=== PATIENT | female | born 1935 | race Caucasian/White ===

== ENCOUNTER → 2016-08-01 | Day surgery (SDC) | payer OTHER, MEDICARE ==
[~2016-08-01] VITALS: Ht 175.3 cm; Wt 101.6 kg
[~2016-08-01] MED LIST: ALBUTEROL 3 ML3 ML INH; ALBUTEROL2.5 MG/0.5 INH/SOL; AMOX-CLAV 875-1 EACH PO; ATIVAN0.5 M1 PO; CALCIUM + VITA1 EAC1 PO; FENTANYL TR50 MCG/HR TOP; FENTANYL1 EAC4 TOP; FOLIC ACID1 M1 PO; GABAPENTIN300 M2 PO; HUMALOG100 UNIT/2 SC; LANTUS SOL100 UNIT/1 SC; LEVAQUIN750 MG PO; LISINOPRIL2.5 M1 PO; LOVASTATIN40 M1 PO; METHOTREXATE2.5 M2 PO; NYSTATIN60 GM TOP; OTEZLA30 M2 PO; OXYBUTYNIN CHLOR5 M2 PO; PAROXETINE HCL40 M1 PO; PREDNISONE 20MG20 MG PO; PREDNISONE10 M2 PO; PREDNISONE10 MG PO; PROAIR HFA0.09 MG/Ac PO; SYMBICORT 80-10.2 GM INH; SYNTHROID75 MCG PO; TOPIRAMATE50 MG PO
--- NOTE | 2016-08-01 09:38 | Operative Report ---
Operative/Inv Procedure Report Surgery Date: 08/01/16 Name of Procedure: Cataract extraction lens in plantation left eye Pre-Operative Diagnosis: Age-related cataract left eye 20/40 vision 20/100 glare vision Post-Operative Diagnosis: Same Estimated Blood Loss: none Surgeon/Assistant Front Office Manager: GRAHAM BARTH,DALJIT Neal Anesthesia: local monitored anesthesi Complications: None Operative/Procedure Note Note: The patient was brought to the operating room standard monitoring equipment was attached the patient was prepped and draped in the usual fashion for intraocular surgery. A lid speculum was placed to retract the lids. The case was begun by making a temporal incision with a 2.4 mm keratome. The eye was stabilized with a Kolb ring during this incision. 1 mL of non-preserved lidocaine was introduced into the anterior chamber to provide anesthesia. The anterior chamber was then filled and deepened with viscoelastic. A curvilinear capsulorrhexis was achieved using a 30-gauge needle and is a cystotome and capsulorrhexis was finished using a Utrata forceps. A second or paracentesis incision was made temporally with a 1 mm MVR blade. The lens was then hydrodissected with balanced salt solution and found to be rotatable. The lens was emulsified using phacoemulsification and a modified four-quadrant cracking technique. The residual cortical material was removed using automated irrigation and aspiration and as much of the anterior capsular rim was cleaned as well as possible. The posterior capsule was cleaned first with the automated machine on a low setting and then manually with a Iban squeegee. The capsular bag was deepened with viscoelastic. The lens a Akreos AO 60 19.5 Diopter placed into the bag under direct visualization and rotated so that the haptics were at 12 and 6:00. Viscoelastic was then removed from the eye by flushing it out and then by automated irrigation and aspiration. The eye was pressurized to a normal tone. 1/10 of a cc of vancomycin solution was introduced into the anterior chamber to provide antibiotic prophylaxis. The wounds were sealed by hydrating the stroma adjacent to them and the eye was left at a proper tone after the wounds were checked and found not to be leaking. The lid speculum was removed from the orbit. Antibiotic and steroid drops were placed on the eye and then the eye was shielded. Monitoring equipment was removed from the patient and the patient was removed from the operative suite to the holding area. The patient tolerated the procedure well and will be seen in the office tomorrow.
== END ==
LOC: STS 01:08
DX: H25.9 Unspecified age-related cataract (principal); E11.9 Type 2 diabetes mellitus without complications; Z79.4 Long term (current) use of insulin; I10 Essential (primary) hypertension; E78.00 Pure hypercholesterolemia, unspecified
CPT/HCPCS: J2250; V2632

== ENCOUNTER 2016-10-30 13:00 | Inpatient (IN) | payer OTHER, MEDICARE ==
[~2016-10-30] VITALS: Ht 175.3 cm; Wt 103.9 kg
[~2016-10-30 13:00] MED LIST changes: -AMOX-CLAV 875-1 EACH PO; -PREDNISONE10 M2 PO
--- NOTE | 2016-10-30 13:01 | NUR ---
PT 02 SAT AT [facility] 91%
--- NOTE | 2016-10-30 13:10 | NUR ---
PT AMBULATORY TO ROOM 17, TRIAGE MST ASSISTING PT TO CHANGE INTO GOWN AND DOING EKG AT THIS TIME
--- NOTE | 2016-10-30 13:10 | NUR ---
PT C/O INCREASED SOB OVER THE PAST FEW DAYS. PT STATES SHE DOES HAVE HX OF COPD PT SPOKE TO DR. CONKLIN AND THEY COULD NOT TAKE HER TODAY SO SENT HER TO ED. PT DENIES SWELLING IN HER LEGS. PT STATES SHE HAS BEEN COUGHING UP THICK GREEN MUCOUS SINCE YESTERDAY BUT DENIES FEVERS. TRIAGED BY NIYA GALEANA
--- NOTE | 2016-10-30 13:15 | ED DYSPNEA/ASTHMA COMPLAINT ---
History of Present Illness General Chief Complaint: Dyspnea (COPD, CHF, Other) Stated Complaint: SOB X 2 DAYS Source: patient, family, old records Exam Limitations: no limitations Vital Signs & Intake/Output Vital Signs & Intake/Output Vital Signs Date Time Temp Pulse Resp B/P B/P Pulse O2 O2 Flow FiO2 Mean Ox Delivery Rate 10/30 1526 97.5 88 22 138/62 94 Nasal 4.0L Cannula 10/30 1442 93 Nasal 2.0L Cannula 10/30 1400 95 Nasal 2.0L Cannula 10/30 1319 95 26 92 Nasal 2.0L Cannula 10/30 1319 28 89 Room Air 10/30 1304 97.7 96 18 128/77 91 Room Air Allergies Coded Allergies: codeine (HIVES 01/26/16) Triage Note: PT C/O INCREASED SOB OVER THE PAST FEW DAYS. PT STATES SHE DOES HAVE HX OF COPD PT SPOKE TO DR. CONKLIN AND THEY COULD NOT TAKE HER TODAY SO SENT HER TO ED. PT DENIES SWELLING IN HER LEGS. PT STATES SHE HAS BEEN COUGHING UP THICK GREEN MUCOUS SINCE YESTERDAY BUT DENIES FEVERS. Triage Nurses Notes Reviewed? yes HPI: PATIENT IS A 81-YEAR-OLD FEMALE PRESENTS COMPLAINING OF DYSPNEA FOR THE PAST 2 DAYS. cOUGH WITH GREEN SPUTUM PRODUCTION. Associated wheezing. Patient has been using her Pro Air and Symbicort with mild improvement. Patient reports her baseline oxygen saturation is approximately 97% on room air. Patient called her fishing tackle repairer Dr. Mcbride and was referred to the emergency department for further evaluation. Symptoms are currently moderate while sitting on the stretcher, worsen with exertion. Right-sided headache onset today along with right posterior neck pain. Patient denies fevers, chills, chest pain, nausea, vomiting (HEATHER GRAY,ELISEO) Reconcile Medications Apremilast (Otezla) 30 MG TABLET 1 TAB PO BID PSORIATIC ARTHRITIS (Reported) Budesonide/Formoterol Fumarate (Symbicort 80-4.5 Mcg Inhaler) 80 MCG-4.5 MCG/ ACTUATION HFA.AER.AD 2 PUF INH BID COPD (Reported) Calcium Carbonate/Vitamin D3 (Calcium + Vitamin D Tablet) 1 EACH TABLET 1 TAB PO BID SUPPLEMENT (Reported) Fentanyl 75 MCG/HOUR PATCH.TD72 1 PAT TOP Q48 PAIN (Reported) Folic Acid 1 MG TABLET 1 TAB PO BID VITAMIN SUPPORT (Reported) Gabapentin 300 MG CAPSULE 1 CAP PO DAILY NEUROPATHY (Reported) Gabapentin 300 MG CAPSULE 2 CAP PO QPM NEUROPATHY (Reported) Insulin Glargine,Hum.rec.anlog (Lantus Solostar) 100 UNIT/ML (3 ML) INSULN.PEN 35 UNIT SC BID DIABETES (Reported) Insulin Lispro (Humalog) (Unknown Strength) VIAL (Unknown Dose) SC SEE SLIDING SCALE DIABETES (Reported) Lisinopril 2.5 MG TABLET 1 TAB PO DAILY HTN (Reported) Lorazepam (Ativan) 0.5 MG TABLET 1 TAB PO BIDP PRN ANXIETY Lovastatin 40 MG TABLET 2 TAB PO QPM CHOLESTEROL (Reported) with food Methotrexate 2.5 MG TABLET 7 TAB PO QSUN PSORIATIC ARTHRITIS (Reported) Oxybutynin Chloride 5 MG TABLET 1 TAB PO BID BLADDER (Reported) Paroxetine HCl 40 MG TABLET 1.5 TAB PO DAILY DEPRESSION (Reported) (ALIYA DRAKE DO) Past History Travel History Traveled to [place] past 21 day No Medical History Any Pertinent Medical History? see below for history Neurological: migraine EENT: NONE Cardiovascular: hypertension, hyperlipidemia Respiratory: asthma, COPD Gastrointestinal: GERD Hepatic: NONE Renal: NONE Musculoskeletal: chronic back pain Psychiatric: anxiety, depression Endocrine: hypothyroidism Blood Disorders: anemia Cancer(s): NONE Other Medical Hx: Rheum: psoriatic arthritis History of MRSA: No History of VRE: No History of CDIFF: No Surgical History Surgical History: non-contributory Psychosocial History Who do you live with Daughter Services at Home None What is your primary language Guinean Tobacco Use: Never used ETOH Use: denies use Illicit Drug Use: denies illicit drug use Family History Hx Contributory? No (ELISEO RAMOS) Review of Systems Review of Systems Constitutional: Denies: chills, fever. EENTM: Reports: no symptoms. Respiratory: Reports: see HPI. Cardiovascular: Denies: chest pain. GI: Denies: abdominal pain, nausea, vomiting. Genitourinary: Reports: no symptoms. Musculoskeletal: Reports: neck pain (right posterior). Skin: Reports: no symptoms. Neurological/Psychological: Reports: headache. Hematologic/Endocrine: Reports: other (diabetes). Immunologic/Allergic: Reports: no symptoms. (ELISEO RAMOS) Physical Exam Physical Exam General Appearance: well developed/nourished, alert, awake Head: atraumatic, normal appearance Eyes: Bilateral: normal appearance, PERRL, EOMI. Ears, Nose, Throat: normal pharynx, normal ENT inspection, hearing grossly normal Neck: normal inspection, supple, full range of motion Respiratory: diffuse moderate expiratory wheezing, no accessory muscle use Cardiovascular: regular rate/rhythm (no appreciable murmur) Gastrointestinal: soft, non-tender Extremities: normal inspection, normal capillary refill, normal range of motion, trace bilateral lower extremity edema Neurologic/Psych: no motor/sensory deficits, awake, alert, oriented x 3, normal gait, normal mood/affect Skin: intact, normal color, warm/dry Lymphatic: no anterior cervical rudy Core Measures ACS in differential dx? No Severe Sepsis Present: No Septic Shock Present: No (HEATHER GRAY,ELISEO) Progress Differential Diagnosis: asthma, bronchitis, CHF, COPD, pulmonary embolism, pneumonia, unstable angina Plan of Care: Orders Procedure Date/time Status Consistent Carbohydrate 1 10/30 D Active STREP PNEUMO URINARY ANTIGEN 10/30 1557 Active LEGIONELLA URINARY ANTIGEN 10/30 1557 Active Pathway - chart 10/30 1529 Active Code Status 10/30 1529 Active Admit to inpatient 10/30 1528 Active Vital Signs 10/30 1528 Active Code Status 10/30 1528 Complete Patient Data 10/30 1521 Active AEROSOL (GEN) 10/30 1401 Complete THYROID STIMULATING HORMONE 10/30 1343 Active FREE T4 10/30 1343 Active FingerStick- Glucose 10/30 1331 Active BLOOD CULTURE 10/30 1319 Active LACTIC ACID 10/30 1319 Active COMPREHENSIVE METABOLIC PANEL 10/30 1319 Active CBC WITHOUT DIFFERENTIAL 10/30 1319 Complete EKG 10/30 1301 Active House Staff 10/30 UNK Active Lab Add-on Test 10/30 UNK Active VTE Mechanical Prophylaxis 10/30 UNK Active Vital Signs 10/[address] CHEST WO IV CONTRAST 10/30 UNK Active Current Medications Sig/Chirag Start time Last Medication Dose Stop Time Status Admin Enoxaparin Sodium 40 MG DAILY 10/31 1000 AC (Lovenox) Gabapentin 300 MG DAILY 10/31 1000 UNVr (Neurontin) Lisinopril 2.5 MG DAILY 10/31 1000 UNVr (Prinivil) Paroxetine HCl 50 MG DAILY 10/31 1000 UNVr (Paxil) Budesonide/ 2 PUF BID 10/30 2200 UNVr Formoterol Fumarate (SYMBICORT) Gabapentin 600 MG QPM 10/30 2199 UNVr (Neurontin) Insulin Detemir 30 UNITS BID 10/30 220 AC (Levemir) Atorvastatin Calcium 10 MG 1700 10/30 170 UNVr (Lipitor) Insulin Aspart 0 TIDAC 10/30 170 AC (NovoLOG) Non-Formulary 0 SEE ADMIN CRITERIA 10/30 1600 UNVr Medication (NON FORMULARY) Acetaminophen 650 MG Q6P PRN 10/30 1530 AC (Tylenol) Acetaminophen/ 1 TAB Q6P PRN 10/30 1530 AC Hydrocodone Bitart (Vicodin) Azithromycin 500 MG ONCE ONE 10/30 153 AC 10/30 (Zithromax) 10/30 1629 1549 Sodium Chloride 250 ML (Normal Saline 0.9%) Laboratory Tests 10/30/16 1425: CBC w Diff MAN DIFF ORDERED, RBC 4.10 L, MCV 97.6, MCH 33.1 H, RDW 15.7 H, MPV 7.9, Gran % 72.8, Lymphocytes % 17.0 L, Monocytes % 9.3, Eosinophils % 0.3, Basophils % 0.6, Absolute Granulocytes 12.0 H, Segmented Neutrophils 68, Absolute Lymphocytes 2.8, Lymphocytes 23, Monocytes 8, Absolute Monocytes 1.5 H , Absolute Eosinophils 0, Basophils 1, Absolute Basophils 0.1, Platelet Estimate ADEQUATE, Normocytic RBCs VERIFIED, Normochromic RBCs VERIFIED, Poikilocytosis 1 +, Stomatocytes 1+, PUBS MCHC 33.9 10/30/16 1343: Anion Gap 11, Estimated GFR > 60, BUN/Creatinine Ratio 24.0, Glucose 228 H, Lactic Acid 1.5, Calcium 9.1, Total Bilirubin 1.3, AST 31, ALT 41, Alkaline Phosphatase 87, Total Protein 6.7, Albumin 3.7, Globulin 3.0, Albumin/Globulin Ratio 1.2, TSH Pending, Free T4 Pending Microbiology 10/30 155 URINE ROUT: Legionella Antigen - COLB 10/30 155 URINE ROUT: Streptococcus pneumoniae Antigen (M - COLB 10/30 1425 BLOOD: Blood Culture - RECD 10/30 1343 BLOOD: Blood Culture - RECD Discussed with and seen by Dr. Drake. 1420: Patient reports she feels improved after duoneb treatment. Improved air movement on re-exam. Continues with moderate wheezing. Oxygen saturation 92% on 2 liters NC. 10/30/2016 3:20:54 PM: Patient reevaluated. Results of labs and chest x-ray discussed with the patient and her family. Patient's oxygen saturation dropped to 88% while on 2 L nasal cannula. Discussed with Dr. Schultz for admission. IV antibiotics ordered. (ELISEO RAMOS) Diagnostic Imaging: Viewed by Me: Radiology Read. Discussed w/RAD: Radiology Read. Radiology Impression: PATIENT: CARYN MASON PRESENT AGE: 81 PATIENT ACCOUNT NO: [id number] : 37 LOCATION: [facility] ORDERING PHYSICIAN: ELISEO GRAY SERVICE DATE: 10/30/16 EXAM TYPE: RAD - XRY-CHEST XRAY, PA AND LATERAL EXAMINATION: XR CHEST CLINICAL INFORMATION: Cough and sputum production. COMPARISON: CT chest 05/15/2014. Chest x-ray 12/30/2013. TECHNIQUE: PA and lateral views of the chest were obtained. FINDINGS: The lungs are well-expanded and clear without focal airspace consolidation. No pleural effusions or pneumothoraces are identified. Cardiomediastinal contours are within normal limits. Soft tissues are unremarkable. No acute osseous abnormality is identified. The visualized bones appear demineralized. There is no visible acute osseous abnormality. IMPRESSION: No acute pulmonary process. DICTATED BY: PARAG MACKEY MD DATE/TIME DICTATED: 10/30/161407 RIM BUSTER:JORDAN DATE/TIME TRANSCRIBED:10/30/161407 CONFIDENTIAL, DO NOT COPY WITHOUT APPROPRIATE AUTHORIZATION. <Electronically signed in Other Vendor System> SIGNED BY: PARAG MACKEY MD 10/30/16 1418 Initial ED EKG: normal p-waves, normal sinus rhythm, incomplete LBBB, LVH, no acute st/t wave changes from previous ekg Prior EKG: unchanged (ELISEO RAMOS) Departure Departure Time of Disposition: 1517 Disposition: STILL A PATIENT Condition: Stable Clinical Impression Primary Impression: COPD exacerbation Secondary Impressions: Hyperglycemia, Leukocytosis Referrals: MALISSA MELENDREZ MD (PCP/Family) Departure Forms: Customer Survey General Discharge Information Admission Note Spoke With: NORMA SCHULTZ MD Documentation of Exam: Documentation of any treatments & extenuating circumstances including Concerns Regarding Discharge (functional status, medication knowledge or non-compliance, living conditions, etc.) that warrant an admission rather than observation: total respiratory care, IV steroids, antibiotics, supplemental oxygen, consider pulmonary consultation (ELISEO RAMOS) PA/VISUAL EFFECTS ARTIST Co-Sign Statement Statement: ED Attending supervision documentation- [X] I saw and evaluated the patient. I have also reviewed all the pertinent lab results and diagnostic results. I agree with the findings and the plan of care as documented in the PA's/VISUAL EFFECTS ARTIST's documentation. [] I have reviewed the ED Record and agree with the PA's/VISUAL EFFECTS ARTIST's documentation. [] Additions or exceptions (if any) to the PAs/VISUAL EFFECTS ARTIST's note and plan are summarized below: [] (ALIYA DRAKE DO) Critical Care Note Critical Care Note Critical Care Time: non-applicable (ELISEO RAMOS)
--- NOTE | 2016-10-30 13:29 | NUR ---
MARINA ROMERO AT BEDSIDE FOR EVAL
--- NOTE | 2016-10-30 13:45 | NUR ---
LABS DRAWN AND SENT BY THIS MST (1ST SET OF B/C,SST)
--- NOTE | 2016-10-30 13:47 | NUR ---
TO XRAY ON STRETCHER
--- NOTE | 2016-10-30 14:18 | RADIOLOGY REPORT ---
EXAMINATION: XR CHEST CLINICAL INFORMATION: Cough and sputum production. COMPARISON: CT chest 05/15/2014. Chest x-ray 12/30/2013. TECHNIQUE: PA and lateral views of the chest were obtained. FINDINGS: The lungs are well-expanded and clear without focal airspace consolidation. No pleural effusions or pneumothoraces are identified. Cardiomediastinal contours are within normal limits. Soft tissues are unremarkable. No acute osseous abnormality is identified. The visualized bones appear demineralized. There is no visible acute osseous abnormality. IMPRESSION: No acute pulmonary process.
[2016-10-30] MEDS ORDERED: GABAPENTIN300 M2 PO (14:31)
[2016-10-30 14:43] LABS: ABSOLUTE BASOPHIL COUNT 0.1 /CUMM (0.0-0.2); ABSOLUTE EOSINOPHIL COUNT 0 /CUMM (0.0-0.7); ABSOLUTE LYMPH COUNT 2.8 /CUMM (1.2-3.4); ABSOLUTE MONOCYTE COUNT 1.5 /CUMM (0.10-0.60); BASOPHIL % 0.6 % (0.0-2.0); EOSINOPHIL % 0.3 % (0-5); GRANULOCYTE % 72.8 % (42.2-75.2); MEAN CORPUSCULAR HGB 33.1 PG (27.0-31.0); MEAN CORPUSCULAR HGB CONC 33.9 G/DL (33.0-37.0); MEAN CORPUSCULAR VOLUME 97.6 FL (81.0-99.0); MEAN PLATELET VOLUME 7.9 FL (7.4-10.4); PLATELET COUNT 263 /CUMM (130-400); RBC DISTRIBUTION WIDTH 15.7 % (11.5-14.5); WHITE BLOOD CELL COUNT 16.5 /CUMM (4.8-10.8)
--- NOTE | 2016-10-30 14:43 | NUR ---
PT FEELING BETTER AFTER NEB TX. SP02 STILL 93-95 ON 2.5L NC. SOLU-MEDROL INFUSING.
--- NOTE | 2016-10-30 14:58 | NUR ---
02 SATS ON 2.5L NC FELL TO 88% WHEN PT RELAXED/SLEEPING. NIGEL TO 91-94 ONLY WHEN TURNED UP TO 4.
--- NOTE | 2016-10-30 15:27 | History & Physical ---
PATRICIA GARCIA MD 10/30/16 1526: General Information and HPI MD Statement: I have seen and personally examined CARYN MASON and documented this H&P. The patient is a 81 year old F who presented with a patient stated chief complaint of [shortness of breath]. History of Present Illness: This is a 81-year-old female with a past medical history of COPD not on home oxygen, insulin-dependent diabetes mellitus, hypertension, psoriatic arthritis, incidental thyroid nodule finding but not on any thyroid medication, who presented to [facility] with persistent shortness of breath and chest congestion for the last 2 days. As per the patient she normally follows up with Dr. Mcbride, who is her regular milliner helper in home she saw 2-3 weeks back and everything was normal. She started having the symptoms of shortness of breath and congestion and cough with productive sputum, greenish in color in the last 48 hours. She denied any fever or chills or any myalgias or arthralgias. Denied any recent travels but she did visit her friends at the [facility] on , 3 days back. Apparently she does not recall anybody sick on that visit. She has been having exertional dyspnea since yesterday and is getting short of breath even while walking to the restroom. Denies any recent leg swellings, or any extra use of pillows while sleeping For her psoriatic arthritis she normally takes methotrexate and AND is followed by rheumatology to [facility] She has also been told in the past that she has an incidental thyroidt nodule for which she has an appointment with Dr. su in 03/01/2017. Allergies/Medications Allergies: Coded Allergies: codeine (HIVES 01/26/16) Home Med list Apremilast (Otezla) 30 MG TABLET 1 TAB PO BID PSORIATIC ARTHRITIS (Reported) Budesonide/Formoterol Fumarate (Symbicort 80-4.5 Mcg Inhaler) 80 MCG-4.5 MCG/ ACTUATION HFA.AER.AD 2 PUF INH BID COPD (Reported) Calcium Carbonate/Vitamin D3 (Calcium + Vitamin D Tablet) 1 EACH TABLET 1 TAB PO BID SUPPLEMENT (Reported) Fentanyl 75 MCG/HOUR PATCH.TD72 1 PAT TOP Q48 PAIN (Reported) Folic Acid 1 MG TABLET 1 TAB PO BID VITAMIN SUPPORT (Reported) Gabapentin 300 MG CAPSULE 1 CAP PO DAILY NEUROPATHY (Reported) Gabapentin 300 MG CAPSULE 2 CAP PO QPM NEUROPATHY (Reported) Insulin Glargine,Hum.rec.anlog (Lantus Solostar) 100 UNIT/ML (3 ML) INSULN.PEN 35 UNIT SC BID DIABETES (Reported) Insulin Lispro (Humalog) (Unknown Strength) VIAL (Unknown Dose) SC SEE SLIDING SCALE DIABETES (Reported) Lisinopril 2.5 MG TABLET 1 TAB PO DAILY HTN (Reported) Lorazepam (Ativan) 0.5 MG TABLET 1 TAB PO BIDP PRN ANXIETY Lovastatin 40 MG TABLET 2 TAB PO QPM CHOLESTEROL (Reported) with food Methotrexate 2.5 MG TABLET 7 TAB PO QSUN PSORIATIC ARTHRITIS (Reported) Oxybutynin Chloride 5 MG TABLET 1 TAB PO BID BLADDER (Reported) Paroxetine HCl 40 MG TABLET 1.5 TAB PO DAILY DEPRESSION (Reported) Past History Travel History Traveled to [place] past 21 day No Medical History Neurological: migraine EENT: NONE Cardiovascular: hypertension, hyperlipidemia Respiratory: asthma, COPD Gastrointestinal: GERD Hepatic: NONE Renal: NONE Musculoskeletal: chronic back pain Psychiatric: anxiety, depression Endocrine: hypothyroidism Blood Disorders: anemia Cancer(s): NONE Other Medical Hx: Rheum: psoriatic arthritis History of MRSA: No History of VRE: No History of CDIFF: No Surgical History Surgical History: non-contributory Past Family/Social History Family History Relations & Conditions if any FATHER Relation not specified for: FH: hypertension Psychosocial History Services at Home: None ETOH Use: denies use Illicit Drug Use: denies illicit drug use Review of Systems Review of Systems Constitutional: Reports: see HPI. EENTM: Reports: see HPI. Cardiovascular: Reports: see HPI. Respiratory: Reports: cough, short of breath, sputum production, wheezing. GI: Denies: bloating, constipation, diarrhea. Exam & Diagnostic Data Last 24 Hrs of Vital Signs/I&O Vital Signs Date Time Temp Pulse Resp B/P B/P Pulse O2 O2 Flow FiO2 Mean Ox Delivery Rate 10/30 1526 97.5 88 22 138/62 94 Nasal 4.0L Cannula 10/30 1442 93 Nasal 2.0L Cannula 10/30 1400 95 Nasal 2.0L Cannula 10/30 1319 95 26 92 Nasal 2.0L Cannula 10/30 1319 28 89 Room Air 10/30 1304 97.7 96 18 128/77 91 Room Air Intake & Output 10/30 1600 10/30 0800 10/30 0000 Intake Total Output Total Balance Patient 229 lb Weight Weight Reported by Patient Measurement Method Physical Exam General Appearance Alert, Oriented X3, Cooperative Skin No Rashes, Psoriatic rash on the right arm near the elbow ( and in the periarticular area) Skin Temp/Moisture Exam: Cool/Dry HEENT Atraumatic, PERRLA Neck Supple, No JVD, No thryomegaly Lymphatic Cervical nl Cardiovascular Regular Rate, Normal S1, Normal S2 Lungs bilateral decreased airway entry and bilateral wheezing Abdomen Normal Bowel Sounds, Soft Diagnostic Data EKG Results Shows normal sinus rhythm with left bundle branch block which is chronic if compared to the previous EKG CXR Results No acute abnormality Assessment/Plan Assessment: Subjective 81-year-old female with a past medical history of non-oxygen dependENT COPD, insulin-dependent diabetes mellitus, hypertension, psoriatic arthritis who presents to the [facility] with persistent shortness of breath congestion and productive sputum Vitals at the time of admission shows Temperature 97.5, pulse rate of 88, respiration rate of 22, blood pressure 138/ 62, saturation of 94% on 4 L of oxygen Labs shows a WBC of 16,000, chemistries are sodium of 136, potassium of 4.8, chloride of 96, BUN/creatinine within normal limits Chest x-ray looks unremarkable Assessment 1. COPD exacerbation 2. Suspicion for pneumonia, given the clinical picture of productive sputum and elevated WBC. Even though the radiological evidence is negative. Chest x-ray can be negative INITIAALLYT with this new acute onset of symptoms 3. History of insulin-dependent diabetes mellitus 4. History of psoriatic arthritis 5. History of incidental thyroid nodule on the ultrasound 6. History of anxiety 7. H/o diabetic neuropathy 8.H/o depression and ansxiety on ssri Plan: Admit to general medicine floor Given the patient's clinical picture of productive sputum, greenish sputum, hypoxia and elevated WBC should treat empirically for community-acquired pneumonia, even in the absence of radiological findings Start with IV ceftriaxone and azithromycin she was given the first was in the emergency department IV Solu-Medrol 40 mg every 8 for persistent wheezing, (she was given 125 mg of salmeterol in the emergency department) Rule out underlying pleural effusion and any evolving pneumonia with CT scan of the chest Strep and Legionella urinary antigen Continue with psoriatic arthritis medications Continue with home medications including insulin, lisinopril and statin Repeat CBC and basic A panel in the morning dvt ppx full code mild pain pathway As Ranked By This Provider Problem List: 1. COPD exacerbation 2. Leukocytosis Core Measures/Miscellaneous Acute Coronary Syndrome ACS Diagnosis: No Cerebrovascular Accident CVA/TIA Diagnosis: No Congestive Heart Failure CHF Diagnosis: No Venous Thromboembolism VTE Risk Factors: Acute medical illness, Age > 40 [facility] prophylaxis d/t: No contraindications No VTE Pharm Prophylaxis d/t: No contraindications VTE Diagnosis: No VTE Type: NONE VTE Confirmed by (Test): NONE Severe Sepsis Severe Sepsis Present: No Septic Shock Septic Shock Present: No Miscellaneous Documentation Attending Case Discussed With: PARKER BARTH,NORMA Primary Care Physician: MALISSA MELENDREZ MD Patient sees these Specialists Yoon Mcbride MD Level of Patient Care: General Medicine PARKER BARTH,NORMA 10/30/16 1737: Attending MD Review Statement Attending Statement Attending MD Statement: examined this patient, discuss w/resident/PA/SCRUB TECH, agreed w/resident/PA/SCRUB TECH, reviewed EMR data (avail), discussed with nursing, reviewed images, amended to note Attending Assessment/Plan: 81 y/o F with pmh sig for COPD not on home oxygen, insulin-dependent diabetes mellitus, hypertension, psoriatic arthritis, incidental thyroid nodule p/w increasing SOB. Sx started yesterday, she is c/o ALEJANDRE, Cough with yellowish greenish sputum, poor appetite. Visited [facility] 2-3 days ago. Came in to ER and found to have leukocytosis with sig b/l wheeze. Denies chills, fevers, no n/v/abd pain. Vital Signs Date Time Temp Pulse Resp B/P B/P Pulse O2 O2 Flow FiO2 Mean Ox Delivery Rate 10/30 1731 98.5 94 20 130/82 90 Nasal 4.0L Cannula 10/30 1644 98.8 92 20 139/61 94 Nasal 4.0L Cannula 10/30 1526 97.5 88 22 138/62 94 Nasal 4.0L Cannula 10/30 1442 93 Nasal 2.0L Cannula 10/30 1400 95 Nasal 2.0L Cannula 10/30 1319 95 26 92 Nasal 2.0L Cannula 10/30 1319 28 89 Room Air 10/30 1304 97.7 96 18 128/77 91 Room Air on exam; aox3, nad. cv; s1,s2, rrr resp; diffuse exp wheeze b/l abd; soft, nt, bs+ ext; no edema. Laboratory Tests 10/30 10/30 10/30 1619 1425 1343 Chemistry Sodium (137 - 145 mmol/L) 136 L Potassium (3.5 - 5.1 mmol/L) 4.8 Chloride (98 - 107 mmol/L) 96 L Carbon Dioxide (22 - 30 mmol/L) 28 Anion Gap (5 - 16) 11 BUN (7 - 17 mg/dL) 12 Creatinine (0.5 - 1.0 mg/dL) 0.5 Estimated GFR (>60 ml/min) > 60 BUN/Creatinine Ratio (7 - 25 %) 24.0 Glucose (65 - 99 mg/dL) 228 H Lactic Acid (0.7 - 2.1 mmol/L) Cancelled 1.5 Calcium (8.4 - 10.2 mg/dL) 9.1 Total Bilirubin (0.2 - 1.3 mg/dL) 1.3 AST (14 - 36 U/L) 31 ALT (9 - 52 U/L) 41 Alkaline Phosphatase (<127 U/L) 87 Total Protein (6.3 - 8.2 g/dL) 6.7 Albumin (3.5 - 5.0 g/dL) 3.7 Globulin (1.9 - 4.2 gm/dL) 3.0 Albumin/Globulin Ratio (1.1 - 2.2 %) 1.2 TSH (0.270 - 4.200 uIU/mL) 0.642 Free T4 (0.78 - 2.44 ng/dL) 1.00 Hematology CBC w Diff MAN DIFF ORDERED WBC (4.8 - 10.8 /CUMM) 16.5 H RBC (4.20 - 5.40 /CUMM) 4.10 L Hgb (12.0 - 16.0 G/DL) 13.5 Hct (37 - 47 %) 40.0 MCV (81.0 - 99.0 FL) 97.6 MCH (27.0 - 31.0 PG) 33.1 H RDW (11.5 - 14.5 %) 15.7 H Plt Count (130 - 400 /CUMM) 263 MPV (7.4 - 10.4 FL) 7.9 Gran % (42.2 - 75.2 %) 72.8 Lymphocytes % (20.5 - 51.1 %) 17.0 L Monocytes % (1.7 - 9.3 %) 9.3 Eosinophils % (0 - 5 %) 0.3 Basophils % (0.0 - 2.0 %) 0.6 Absolute Granulocytes (1.4 - 6.5 /CUMM) 12.0 H Segmented Neutrophils (42.2 - 75.2 %) 68 Absolute Lymphocytes (1.2 - 3.4 /CUMM) 2.8 Lymphocytes (20.5 - 51.1 %) 23 Monocytes (1.7 - 9.3 %) 8 Absolute Monocytes (0.10 - 0.60 /CUMM) 1.5 H Absolute Eosinophils (0.0 - 0.7 /CUMM) 0 Basophils (0.0 - 2.0 %) 1 Absolute Basophils (0.0 - 0.2 /CUMM) 0.1 Platelet Estimate (ADEQUATE) ADEQUATE Normocytic RBCs VERIFIED Normochromic RBCs VERIFIED Poikilocytosis 1+ Stomatocytes 1+ PUBS MCHC (33.0 - 37.0 G/DL) 33.9 EKG>> sinus. CXR: clear A/P; 81 y/o F with pmh sig for COPD not on home oxygen, insulin-dependent diabetes mellitus, hypertension, psoriatic arthritis, incidental thyroid nodule admitted with acute resp failure, acute cOPD exacerbation and possible acute community acquired PNA. Admit to gen med. Will treat with IV steroids, antibiotics as well as TRC nebs. Will continue her inhalers. Sputum cultures will be obtained. Consult pulmonology in the morning. Confirm and continue home medications. DVT prophylaxis: Lovenox Full code.
--- NOTE | 2016-10-30 15:49 | NUR ---
SEEN BY HOUSE STAFF. IV ABX INFUSING. REFUSED MEAL TRAY AT THIS TIME. AWAITING ROOM ASSIGNMENT.
--- NOTE | 2016-10-30 16:12 | NUR ---
PT TO BED 215 BED 2
--- NOTE | 2016-10-30 16:35 | NUR ---
REPORT GIVEN TO SCOTT PisanoORTH, TRANSPORT CALLED. PT EATING DINNER, MEDICATED WITH DAILY MEDS.
[2016-10-30 17:31] VITALS: BP 130/82
--- NOTE | 2016-10-30 17:49 | NUR ---
NURSING NOTE: PT ARRIVED TO FLOOR AT 1711 FROM ER. PT A&O, VSS CHARTED. SKIN INTACT. ORIENTED TO ROOM AND CALL CATALAN.
[2016-10-30 22:38] VITALS: BP 132/66
[2016-10-31 05:57] VITALS: BP 138/70
--- NOTE | 2016-10-31 07:12 | PN- Housestaff ---
MARILIA BARTH,MELCHOR 10/31/16 0712: Subjective Follow-up For: copd exacerbation pneumonia Subjective: pt was seen today, feels improved. Dr. Mcbride aware that pt has been admitted. Pt was sitting up comfortably in bed eating her breakfast, she was on 4L o2 nc ( not on home o2), exp wheeze heard throughout, wbc 16.5 to 13.1 . bun/cr 12/0.5 to 21/0.6. solumedrol tapered to 40q12. pt is concerned that she contracted pneumonia from visiting the senior home and seriously considering not going to the senior home to socialize anymore. Ct chest showed Interval development of multifocal ill-defined nodular opacities in the right upper lobe and one small focus in the right lower lobe. Findings are most consistent with interval development of pneumonitis. Close clinical correlation and follow-up CT scan of the chest in 3 months is suggested for reassessment. No significant change in scattered small pulmonary nodules dating back to 2013, consistent with a benign etiology. Borderline enlarged mediastinal lymph nodes, most likely reactive to the inflammatory process in the right lung. These can also be reevaluated at the time of the above suggested follow-up CT scan. Enlarged nodular thyroid gland. The previous thyroid ultrasound from 2009 had revealed an multinodular goiter. Would recommend repeat thyroid ultrasound to more carefully compare the thyroid for interval changes. Review of Systems Constitutional: Reports: see HPI. Objective Last 24 Hrs of Vital Signs/I&O Vital Signs Date Time Temp Pulse Resp B/P B/P Pulse O2 O2 Flow FiO2 Mean Ox Delivery Rate 10/31 1256 92 Nasal 4.0L Cannula 10/31 0908 86 112/60 10/31 0800 93 Nasal 4.0L Cannula 10/31 0740 99.2 85 18 109/64 95 Nasal 4.0L Cannula 10/31 0000 Room Air 10/30 2238 97.4 102 20 132/66 96 Nasal 4.0L Cannula 10/30 1905 Nasal 4.0L Cannula 10/30 1740 91 Nasal 4.0L Cannula 10/30 1731 98.5 94 20 130/82 90 Nasal 4.0L Cannula 10/30 1644 98.8 92 20 139/61 94 Nasal 4.0L Cannula 10/30 1526 97.5 88 22 138/62 94 Nasal 4.0L Cannula 10/30 1442 93 Nasal 2.0L Cannula 10/30 1400 95 Nasal 2.0L Cannula Intake & Output 10/31 1600 05/ 0800 05/ 0000 Intake Total 300 800 Output Total 600 600 Balance -300 200 Intake, Oral 300 800 Output, Urine 600 600 Patient 103.873 kg Weight Physical Exam General Appearance: Alert, Oriented X3, Cooperative, No Acute Distress HEENT: Atraumatic Cardiovascular: Regular Rate, Normal S1, Normal S2 Lungs: diffuse exp wheezes Abdomen: Normal Bowel Sounds, Soft, No Tenderness Current Medications: Current Medications Sig/Chirag Start time Last Medication Dose Route Stop Time Status Admin Acetaminophen 650 MG Q6P PRN 10/30 1530 AC PO Acetaminophen/ 1 TAB Q6P PRN 10/30 1530 AC Hydrocodone Bitart PO Albuterol Sulfate 3 ML Q4P PRN 10/30 1915 AC INH Atorvastatin Calcium 10 MG 1700 10/30 1700 AC 10/30 PO 1634 Azithromycin 250 MG Q24H 10/31 1600 CAN Sodium Chloride 250 ML IV Azithromycin 500 MG Q24H 10/31 1600 AC Sodium Chloride 250 ML IV Azithromycin 500 MG ONCE ONE 10/30 1530 DC 10/30 Sodium Chloride 250 ML IV 10/30 1629 1549 Budesonide/ 2 PUF BID 10/30 2200 AC 10/31 Formoterol Fumarate INH 0909 Ceftriaxone Sodium 1,000 MG Q24H / 1600 AC IV Ceftriaxone Sodium 0 .STK-MED ONE 10/30 1535 DC .ROUTE Ceftriaxone Sodium 1,000 MG ONCE ONE 10/30 1530 DC 10/30 IV 10/30 1531 1541 Enoxaparin Sodium 40 MG DAILY / 1000 AC 10/31 SC 0910 Fentanyl Citrate 75 MCG Q72H 10/30 2330 AC 10/31 TOP 0006 Gabapentin 300 MG DAILY 10/31 1000 AC 10/31 PO 0908 Gabapentin 600 MG QPM 10/30 2200 AC 10/30 PO 2211 Insulin Aspart 0 TIDAC 10/30 1700 AC 10/31 SC 1206 Insulin Detemir 30 UNITS BID 10/30 2200 DC SC Insulin Detemir 35 UNITS BID 10/30 2200 AC 10/31 SC 0910 Lisinopril 2.5 MG DAILY / 1000 AC 10/31 PO 0908 Methylprednisolone 40 MG 0600,1800 05 1800 AC IV Methylprednisolone 40 MG Q12 10/31 1000 DC IV Methylprednisolone 40 MG Q8 10/30 2200 DC 10/31 IV 0559 Methylprednisolone 0 .STK-MED ONE 10/30 1343 DC .ROUTE Non-Formulary 0 SEE ADMIN CRITERIA 10/30 1600 UNV Medication ANY Paroxetine HCl 50 MG DAILY 10/31 1000 AC 10/31 PO 0909 Last 24 Hrs of Lab/Camilo Results Last 24 Hrs of Labs/Mics: Laboratory Tests 10/31/16 0630: Anion Gap 13, Estimated GFR > 60, BUN/Creatinine Ratio 35.0 H, CBC w Diff NO MAN DIFF REQ, RBC 4.14 L, MCV 99.5 H, MCH 32.7 H, RDW 15.8 H, MPV 8.1, Gran % 91.4 H, Lymphocytes % 6.6 L, Monocytes % 2.0, Eosinophils % 0, Basophils % 0 L, Absolute Granulocytes 12.0 H, Absolute Lymphocytes 0.9 L, Absolute Monocytes 0.3, Absolute Eosinophils 0, Absolute Basophils 0, PUBS MCHC 32.8 L 10/30/16 1619: Lactic Acid Cancelled 10/30/16 1425: CBC w Diff MAN DIFF ORDERED, RBC 4.10 L, MCV 97.6, MCH 33.1 H, RDW 15.7 H, MPV 7.9, Gran % 72.8, Lymphocytes % 17.0 L, Monocytes % 9.3, Eosinophils % 0.3, Basophils % 0.6, Absolute Granulocytes 12.0 H, Segmented Neutrophils 68, Absolute Lymphocytes 2.8, Lymphocytes 23, Monocytes 8, Absolute Monocytes 1.5 H , Absolute Eosinophils 0, Basophils 1, Absolute Basophils 0.1, Platelet Estimate ADEQUATE, Normocytic RBCs VERIFIED, Normochromic RBCs VERIFIED, Poikilocytosis 1 +, Stomatocytes 1+, PUBS MCHC 33.9 10/30/16 1343: Anion Gap 11, Estimated GFR > 60, BUN/Creatinine Ratio 24.0, Glucose 228 H, Lactic Acid 1.5, Calcium 9.1, Total Bilirubin 1.3, AST 31, ALT 41, Alkaline Phosphatase 87, Total Protein 6.7, Albumin 3.7, Globulin 3.0, Albumin/Globulin Ratio 1.2, TSH 0.642, Free T4 1.00 Microbiology 10/30 1734 URINE ROUT: Legionella Antigen - COMP 10/30 1734 URINE ROUT: Streptococcus pneumoniae Antigen (M - COMP 10/30 1624 LOWER RESP: Respiratory Culture - COLB 10/30 1624 LOWER RESP: Gram Stain - COLB 10/30 1425 BLOOD: Blood Culture - RES 10/30 1343 BLOOD: Blood Culture - RES Assessment/Plan Assessment: 81-year-old female with PMH of non-oxygen dependen COPD, insulin-dependent diabetes mellitus, hypertension, psoriatic arthritis who presents to the [facility] with persistent shortness of breath congestion and productive sputum. She required up to 4L of O2. Patient was admitted for COPD exacerbation with suspected community acquired pneumonia. # COPD exacerbation with suspicion for pneumonia, given the clinical picture of productive sputum and elevated WBC. Even though the radiological evidence is negative. Chest x-ray can be negative initially with this acute onset of symptoms - Strep and Legionella urinary antigen negative - Ct chest showed Interval development of multifocal ill-defined nodular opacities in the right upper lobe and one small focus in the right lower lobe. Findings are most consistent with interval development of pneumonitis. Close clinical correlation and follow-up CT scan of the chest in 3 months is suggested for reassessment. No significant change in scattered small pulmonary nodules dating back to 2013, consistent with a benign etiology. Borderline enlarged mediastinal lymph nodes, most likely reactive to the inflammatory process in the right lung. These can also be reevaluated at the time of the above suggested follow-up CT scan. * Taper solumedrol from 40q8 to 40q12 * Dr. Mcbride aware that pt is admitted * Continue azithromycin and ceftriaxone * F/U CT scan chest in 3 months # History of insulin-dependent diabetes mellitus # H/o diabetic neuropathy * Accucheck and insulin # History of psoriatic arthritis * Continue with psoriatic arthritis medications # History of incidental thyroid nodule on the ultrasound - CT chest: enlarged nodular thyroid gland. The previous thyroid ultrasound from 2009 had revealed an multinodular goiter. Would recommend repeat thyroid ultrasound to more carefully compare the thyroid for interval changes. Pt reported just having thyroid US done the week prior to admission and will follow up with Dr. Hill. # H/o depression and anxiety * Continue paxil # Home meds * Continue lisinopril and statin mild pain pathway diet: diabetic diet dvt ppx: alps and lovenox full code Problem List: 1. COPD exacerbation 2. Leukocytosis Pain Ratin Pain Location: none Pain Goal: Pain 4 or less Pain Plan: mild pp Tomorrow's Labs & Rationales: cbc leukocytosis bep for rising bun DVT/Prophylaxis: mechanical, pharmacological ADRIANA ROUSE 10/31/16 1241: Attending MD Review Statement Attending Statement Attending MD Statement: examined this patient, discuss w/resident/PA/SOLUTION STRATEGIST, agreed w/resident/PA/SOLUTION STRATEGIST, discussed with family, reviewed EMR data (avail), discussed with nursing, discussed with case mgmt, reviewed images, amended to note Attending Assessment/Plan: 81 y/o F with pmh sig for COPD not on home oxygen, insulin-dependent diabetes mellitus, hypertension, psoriatic arthritis, incidental thyroid nodule admitted with acute resp failure, acute COPD exacerbation and possible acute community acquired PNA. Patient clinically improved with slow course, c/w IV steroids, antibiotics as well as TRC nebs. Will continue her inhalers. Sputum cultures will be obtained. Consult pulmonology if symptoms worsen. resume home meds, gi/ dvt prophyalxis, full code. f/u o/p PCP in 1 week of d/c and Dr Hill as scheduled appt for thyroid nodule.
[2016-10-31 07:40] VITALS: BP 109/64
[2016-10-31 08:10] LABS: ABSOLUTE BASOPHIL COUNT 0 /CUMM (0.0-0.2); ABSOLUTE EOSINOPHIL COUNT 0 /CUMM (0.0-0.7); ABSOLUTE LYMPH COUNT 0.9 /CUMM (1.2-3.4); ABSOLUTE MONOCYTE COUNT 0.3 /CUMM (0.10-0.60); BASOPHIL % 0 % (0.0-2.0); EOSINOPHIL % 0 % (0-5); HEMATOCRIT 41.2 % (37-47); MEAN CORPUSCULAR HGB 32.7 PG (27.0-31.0); MEAN CORPUSCULAR HGB CONC 32.8 G/DL (33.0-37.0); MEAN CORPUSCULAR VOLUME 99.5 FL (81.0-99.0); MEAN PLATELET VOLUME 8.1 FL (7.4-10.4); PLATELET COUNT 262 /CUMM (130-400); RBC DISTRIBUTION WIDTH 15.8 % (11.5-14.5); RED BLOOD CELL CT 4.14 /CUMM (4.20-5.40); WHITE BLOOD CELL COUNT 13.1 /CUMM (4.8-10.8)
[2016-10-31 09:42] LABS: GRANULOCYTE % 91.4 % (42.2-75.2)
--- NOTE | 2016-10-31 09:46 | CT SCAN REPORT ---
EXAMINATION: CT CHEST WITHOUT CONTRAST CLINICAL INFORMATION: Productive sputum. Greenish in color with hypoxia. Presumptive diagnosis of pleural effusion and pneumonia. History of multiple lung nodules. COMPARISON: CT scan of the chest dated 05/15/2014, 12/31/2013. Thyroid ultrasound dated 09/29/2009. TECHNIQUE: Multidetector volumetric CT imaging of the chest was done. Axial MIP volume rendering provided. Sagittal and coronal reformatted images were obtained. DLP: 571.58 mGy-cm FINDINGS: LUNGS: There has been interval development of multiple ill-defined nodular opacities throughout the right upper lobe, some of which are centered about the airways and some of which are seen peripherally against the pleural surface, new from 05/15/2014. Findings are most likely related to interim development of a right upper lobe pneumonitis. Additional small ill-defined nodular opacity is seen in the right lower lobe (series 4, image 218), most likely also related to infectious/inflammatory process. Multiple previously seen small nodules are again visualized, unchanged, ranging in size between 0.2 and 0.4 cm. No effusion or pneumothorax. Central airways patent. There is, become a slight narrowing of the lower cervical esophagus due to extrinsic compression by an enlarged nodular thyroid gland and there is also slight compression with narrowing of the bronchus intermedius due to vascular impression. LYMPHOVASCULAR STRUCTURES: Aortic and heart size normal. No pericardial effusion. Mild atherosclerotic calcifications of the coronary arteries and the aorta and great vessels are noted. There are a few scattered borderline size mediastinal lymph nodes, with largest one in the precarinal space, measuring 1 cm in short axis. Several morphologically normal-appearing, but enlarged axillary lymph nodes are noted, similar to prior exam. No definite hilar adenopathy is seen on noncontrast study. THYROID GLAND: Markedly enlarged and macrolobulated. Ill-defined nodular densities, some of which demonstrate peripheral calcifications. This is incompletely imaged and causes mild extrinsic compression of the lower cervical trachea. UPPER ABDOMEN: There is diffuse atrophy and fatty infiltration of the pancreatic head and body. No ductal dilatation or focal mass or surrounding stranding seen. Included portions of the solid organs in the upper abdomen otherwise unremarkable on noncontrast exam. Small hiatal hernia is seen. BONES: There is a superior endplate compression deformity of the T5 vertebral body with approximately 50% reduction in vertebral body height, unchanged from prior exam. Multilevel moderate degenerative changes are noted throughout the spine. Old healed fracture deformity of the sternum is seen. IMPRESSION: 1. Interval development of multifocal ill-defined nodular opacities in the right upper lobe and one small focus in the right lower lobe. Findings are most consistent with interval development of pneumonitis. Close clinical correlation and follow-up CT scan of the chest in 3 months is suggested for reassessment. 2. No significant change in scattered small pulmonary nodules dating back to 2013, consistent with a benign etiology. 3. Borderline enlarged mediastinal lymph nodes, most likely reactive to the inflammatory process in the right lung. These can also be reevaluated at the time of the above suggested follow-up CT scan. 4. Enlarged nodular thyroid gland. The previous thyroid ultrasound from 2009 had revealed an multinodular goiter. Would recommend repeat thyroid ultrasound to more carefully compare the thyroid for interval changes. 5. Atrophic pancreas.
[2016-10-31] MEDS ORDERED: PREDNISONE10 M2 PO (13:42)
[2016-10-31 15:10] VITALS: BP 118/68
[2016-10-31 22:18] VITALS: BP 116/64
[2016-11-01 06:47] VITALS: BP 126/74
--- NOTE | 2016-11-01 06:54 | PN- Housestaff ---
MARILIA BARTH,MELCHOR 11/01/16 0654: Subjective Follow-up For: copd exacerbation pneumonia Subjective: Pt was hoping she could be discharged today but she was still requiring 2L O2 and has not been ambulating much, she still had diffuse rhonchi, pt agreed to stay 1 more day with anticipated discharge tomorrow. she reports no cough and minimal sputum production. we plan to discharge on slow prednisone taper, augmentin and azithro. noted rash on medial right ankle. denies itching. wbc 13.1 to 15.3, most likely due to steroids. Review of Systems Constitutional: Reports: see HPI. Objective Last 24 Hrs of Vital Signs/I&O Vital Signs Date Time Temp Pulse Resp B/P B/P Pulse O2 O2 Flow FiO2 Mean Ox Delivery Rate 11/01 0942 72 124/70 11/01 0801 93 Nasal 2.0L Cannula 11/01 0647 97.8 75 20 126/74 97 Nasal 2.0L Cannula 11/01 0000 Nasal 2.0L Cannula 10/31 2218 97.7 63 20 116/64 94 Nasal 2.0L Cannula 10/31 1900 97 Nasal 3.0L Cannula 10/31 1600 94 Nasal 4.0L Cannula 10/31 1510 97.7 92 20 118/68 93 Room Air 10/31 1256 92 Nasal 4.0L Cannula Intake & Output 11/01 1600 11/01 0800 11/01 0000 Intake Total 800 2420 Output Total 1050 Balance 800 1370 Intake, IV 0 0 Intake, Oral 800 2420 Number 0 1 Bowel Movements Output, Urine 1050 Physical Exam General Appearance: Alert, Oriented X3, Cooperative, No Acute Distress Cardiovascular: Regular Rate, Normal S1, Normal S2, No Murmurs Lungs: diffuse exp rhonchi Abdomen: Normal Bowel Sounds, Soft, No Tenderness Extremities: rash noted right ankle (medial) Current Medications: Current Medications Sig/Chirag Start time Last Medication Dose Route Stop Time Status Admin Acetaminophen 650 MG .STK-MED ONE 10/31 1820 DC PO 10/31 182 Acetaminophen 650 MG Q6P PRN 10/30 1530 AC 10/31 PO 1820 Acetaminophen/ 1 TAB Q6P PRN 10/30 1530 AC Hydrocodone Bitart PO Albuterol Sulfate 3 ML Q4P PRN 10/30 1915 AC INH Amoxicillin/ 875 MG Q12 11/01 2200 AC Clavulanate Potassium PO Atorvastatin Calcium 10 MG 1700 10/30 1700 AC 10/31 PO 1738 Azithromycin 500 MG Q24H 10/31 1600 AC 10/31 Sodium Chloride 250 ML IV 11/01 2159 1559 Budesonide/ 2 PUF BID 10/30 2200 AC 11/01 Formoterol Fumarate INH 0944 Ceftriaxone Sodium 1,000 MG Q24H 10/31 1600 DC 10/31 IV 1558 Enoxaparin Sodium 40 MG DAILY 10/31 1000 AC 11/01 SC 0944 Fentanyl Citrate 75 MCG Q72H 10/30 2330 AC 10/31 TOP 0006 Gabapentin 300 MG DAILY 10/31 1000 AC 11/01 PO 0942 Gabapentin 600 MG QPM 10/30 2200 AC 10/31 PO 2152 Insulin Aspart 0 TIDAC 10/30 1700 AC 11/01 SC 0750 Insulin Detemir 35 UNITS BID 10/30 2200 AC 11/01 SC 0944 Lisinopril 2.5 MG DAILY 10/31 1000 AC 11/01 PO 0942 Methylprednisolone 40 MG 0600,1800 10/31 1800 DC 11/01 IV 0613 Paroxetine HCl 50 MG DAILY 10/31 1000 AC 11/01 PO 0943 Prednisone 40 MG DAILY 11/02 1000 AC PO 11/04 1001 Prednisone 40 MG DAILY 11/01 1000 DC PO 11/03 1001 Prednisone 20 MG ONCE ONE 11/01 1000 DC 11/01 PO 11/01 1001 0943 Last 24 Hrs of Lab/Camilo Results Last 24 Hrs of Labs/Mics: Laboratory Tests 11/01/16 0630: Anion Gap 8, Estimated GFR > 60, BUN/Creatinine Ratio 38.3 H, CBC w Diff NO MAN DIFF REQ, RBC 4.23, MCV 99.5 H, MCH 32.7 H, RDW 15.5 H, MPV 7.9, Gran % 84.7 H, Lymphocytes % 10.0 L, Monocytes % 5.3, Eosinophils % 0, Basophils % 0 L, Absolute Granulocytes 13.0 H, Absolute Lymphocytes 1.5, Absolute Monocytes 0.8 H, Absolute Eosinophils 0, Absolute Basophils 0, PUBS MCHC 32.9 L Microbiology 10/31 1220 LOWER RESP: Respiratory Culture - RES YEAST 10/31 1220 LOWER RESP: Gram Stain - RES Assessment/Plan Assessment: 81-year-old female with PMH of non-oxygen dependen COPD, insulin-dependent diabetes mellitus, hypertension, psoriatic arthritis who presents to the [facility] with persistent shortness of breath congestion and productive sputum. She required up to 4L of O2. Patient was admitted for COPD exacerbation with suspected community acquired pneumonia. # COPD exacerbation with suspicion for pneumonia, given the clinical picture of productive sputum and elevated WBC. Even though the radiological evidence is negative. Chest x-ray can be negative initially with this acute onset of symptoms - Strep and Legionella urinary antigen negative - Ct chest showed Interval development of multifocal ill-defined nodular opacities in the right upper lobe and one small focus in the right lower lobe. Findings are most consistent with interval development of pneumonitis. Close clinical correlation and follow-up CT scan of the chest in 3 months is suggested for reassessment. No significant change in scattered small pulmonary nodules dating back to 2013, consistent with a benign etiology. Borderline enlarged mediastinal lymph nodes, most likely reactive to the inflammatory process in the right lung. These can also be reevaluated at the time of the above suggested follow-up CT scan. * Solumedrol discontinued --> prednisone 40 (dc on slow taper) * Dr. Mcbride aware that pt is admitted * Continue azithromycin * Discontinue ceftriaxone, start on augmentin * F/U CT scan chest in 3 months # History of insulin-dependent diabetes mellitus # H/o diabetic neuropathy * Accucheck and insulin # History of psoriatic arthritis * Continue with psoriatic arthritis medications # History of incidental thyroid nodule on the ultrasound - CT chest: enlarged nodular thyroid gland. The previous thyroid ultrasound from 2009 had revealed an multinodular goiter. Would recommend repeat thyroid ultrasound to more carefully compare the thyroid for interval changes. Pt reported just having thyroid US done the week prior to admission and will follow up with Dr. Hill. # H/o depression and anxiety * Continue paxil # Home meds * Continue lisinopril and statin mild pain pathway diet: diabetic diet dvt ppx: alps and lovenox full code Problem List: 1. COPD exacerbation 2. Pneumonia Pain Ratin Pain Location: none Pain Goal: Remain pain free Pain Plan: none Tomorrow's Labs & Rationales: none DVT/Prophylaxis: mechanical, pharmacological ADRIANA ROUSE 11/01/16 1119: Attending MD Review Statement Attending Statement Attending MD Statement: examined this patient, discuss w/resident/PA/AERIAL GUNNER SUPERINTENDENT, agreed w/resident/PA/AERIAL GUNNER SUPERINTENDENT, discussed with family, reviewed EMR data (avail), discussed with nursing, discussed with case mgmt, reviewed images, amended to note Attending Assessment/Plan: 81 y/o F with pmh sig for COPD not on home oxygen, insulin-dependent diabetes mellitus, hypertension, psoriatic arthritis, incidental thyroid nodule admitted with acute resp failure, acute COPD exacerbation and possible acute community acquired PNA. Patient clinically improved with slow course, taper steroids, antibiotics as well as TRC nebs. Will continue her inhalers. Sputum cultures will be obtained. Consult pulmonology if symptoms worsen. resume home meds, gi/ dvt prophyalxis, full code. f/u o/p PCP in 1 week of d/c and Dr Hill as scheduled appt for thyroid nodule and Dr Mcbride as o/p in 1-2 weeks.
[2016-11-01 07:44] LABS: ABSOLUTE BASOPHIL COUNT 0 /CUMM (0.0-0.2); ABSOLUTE EOSINOPHIL COUNT 0 /CUMM (0.0-0.7); ABSOLUTE LYMPH COUNT 1.5 /CUMM (1.2-3.4); ABSOLUTE MONOCYTE COUNT 0.8 /CUMM (0.10-0.60); BASOPHIL % 0 % (0.0-2.0); EOSINOPHIL % 0 % (0-5); HEMATOCRIT 42.1 % (37-47); MEAN CORPUSCULAR HGB 32.7 PG (27.0-31.0); MEAN CORPUSCULAR HGB CONC 32.9 G/DL (33.0-37.0); MEAN CORPUSCULAR VOLUME 99.5 FL (81.0-99.0); MEAN PLATELET VOLUME 7.9 FL (7.4-10.4); PLATELET COUNT 302 /CUMM (130-400); RBC DISTRIBUTION WIDTH 15.5 % (11.5-14.5); RED BLOOD CELL CT 4.23 /CUMM (4.20-5.40); WHITE BLOOD CELL COUNT 15.3 /CUMM (4.8-10.8)
[2016-11-01 08:40] LABS: GRANULOCYTE % 84.7 % (42.2-75.2)
--- NOTE | 2016-11-01 11:41 | Discharge Summary ---
Visit Information Visit Dates Admission Date: 10/30/16 Discharge Date: 11/02/16 Hospital Course Course Attending Physician: ADRIANA ROUSE MD Primary Care Physician: MALISSA MELENDREZ MD Hospital Course: 81-year-old female with PMH of non-oxygen dependent COPD, insulin-dependent diabetes mellitus, hypertension, psoriatic arthritis who presents to the [facility] with persistent shortness of breath congestion and productive sputum. She required up to 4L of O2. Patient was admitted for acute hypoxic respiratory failure most likely due to COPD exacerbation with suspected community acquired pneumonia (inital cxr negative). CT chest showed interval development of multifocal ill-defined nodular opacities in the right upper lobe and one small focus in the right lower lobe. Findings are most consistent with interval development of pneumonitis. Close clinical correlation and follow-up CT scan of the chest in 3 months is suggested for reassessment. No significant change in scattered small pulmonary nodules dating back to 2013, consistent with a benign etiology. Borderline enlarged mediastinal lymph nodes, most likely reactive to the inflammatory process in the right lung. These can also be reevaluated at the time of the above suggested follow-up CT scan. Patient received IV solumedrol subsequently discharged on slow prednisone taper. She received 1 day of IV ceftriaxone, subsequently changed to augmentin to complete a total 7 day course of antibiotics. She continued to desaturate on ambulation, hence she was sent home on oxygen with instructions to follow up with Dr. Mcbride and PCP. Respiratory culture grew yeast, few gram positive cocci and few gram positive rods. CT chest also showed enlarged nodular thyroid gland. The previous thyroid ultrasound from 2009 had revealed an multinodular goiter. Would recommend repeat thyroid ultrasound to more carefully compare the thyroid for interval changes. Pt reported just having thyroid US done the week prior to admission and will follow up with Dr. Hill. Allergies: Coded Allergies: codeine (HIVES 01/26/16) Pertinent Lab Results: Chest CT IMPRESSION: 1. Interval development of multifocal ill-defined nodular opacities in the right upper lobe and one small focus in the right lower lobe. Findings are most consistent with interval development of pneumonitis. Close clinical correlation and follow-up CT scan of the chest in 3 months is suggested for reassessment. 2. No significant change in scattered small pulmonary nodules dating back to 2013, consistent with a benign etiology. 3. Borderline enlarged mediastinal lymph nodes, most likely reactive to the inflammatory process in the right lung. These can also be reevaluated at the time of the above suggested follow-up CT scan. 4. Enlarged nodular thyroid gland. The previous thyroid ultrasound from 2009 had revealed an multinodular goiter. Would recommend repeat thyroid ultrasound to more carefully compare the thyroid for interval changes. 5. Atrophic pancreas. DICTATED BY: WESLEY LU MD DATE/TIME DICTATED:10/31/16905 Disposition Summary Disposition Principal Diagnosis: COPD exacerbation Additional Diagnosis: Pneumonia Discharge Disposition: home or self care Discharge Instructions General Discharge Information Code Status: Full Code Patient's Diet: Diabetic diet Patient's Activity: As tolerated Follow-Up Instructions/Appts: You were seen/treated for: communit aquired PNA Special Instructions: - PLease complete the antibiotics and prednisone as directed - Please follow up with dr Mcbride in 1 week of discharge You will need repeat CT scan of the chest in 3 months - Please follow up with your PCP -Please follow up with Dr. Hill for thyroid nodule. Medications at Discharge Discharge Medications: Continue taking these medications: Folic Acid (Folic Acid) 1 MG TABLET 1 Tablet ORAL TWICE DAILY Gabapentin (Gabapentin) 300 MG CAPSULE 1 Capsule ORAL DAILY Insulin Glargine,Hum.rec.anlog (Lantus Solostar) 100 UNIT/ML (3 ML) INSULN.PEN 35 Unit Inject into fatty tissue TWICE DAILY Lisinopril (Lisinopril) 2.5 MG TABLET 1 Tablet ORAL DAILY Lovastatin (Lovastatin) 40 MG TABLET 2 Tablet ORAL Every night Instructions: with food Methotrexate (Methotrexate) 2.5 MG TABLET 7 Tablet ORAL EVERY SUNDAY Comments: PER PT MED LABEL Insulin Lispro (Humalog) (Unknown Strength) VIAL 1 Unit Inject into fatty tissue SEE SLIDING SCALE Paroxetine HCl (Paroxetine HCl) 40 MG TABLET 1.5 Tablet ORAL DAILY Budesonide/Formoterol Fumarate (Symbicort 80-4.5 Mcg Inhaler) 80 MCG-4.5 MCG/ ACTUATION HFA.AER.AD 2 Puff Inhale through mouth TWICE DAILY Fentanyl (Fentanyl) 75 MCG/HOUR PATCH.TD72 1 Patch On the skin EVERY 48 HOURS (Every 2 days) Apremilast (Otezla) 30 MG TABLET 1 Tablet ORAL TWICE DAILY Comments: PER PT MED LABEL Oxybutynin Chloride (Oxybutynin Chloride) 5 MG TABLET 1 Tablet ORAL TWICE DAILY Qty = 180 Comments: PER PT MED LABEL Calcium Carbonate/Vitamin D3 (Calcium + Vitamin D Tablet) 1 EACH TABLET 1 Tablet ORAL TWICE DAILY Comments: PER PT Lorazepam (Ativan) 0.5 MG TABLET 1 Tablet ORAL 2 x Daily as needed as needed for ANXIETY Qty = 12 Gabapentin (Gabapentin) 300 MG CAPSULE 2 Capsule ORAL Every night Start taking the following new medications: Prednisone (Prednisone) 10 MG TABLET 1 Tablet ORAL See Instructions Qty = 60 No Refills Instructions: then take 40 mg daily for the next 2 days then take 30 mg daily for the next 3 days then take 20 mg daily for the next 3 days then take 10 mg daily for the next 3 days then stop Amoxicillin/Clavulanate Potass (Amox-Clav 875-125 MG Tablet) 875 MG-125 MG TABLET 1 Tablet ORAL TWICE DAILY Qty = 10 No Refills Copies To: STAN BARTH,Yoon PALMA; PARVIN BARTH,MALISSA Gilbert; JYOTSNA BARTH,SHAE Attending MD Review Statement Documenting Attending: PADMA BARTH,ADRIANA
[2016-11-01] MEDS ORDERED: AMOX-CLAV 875-1 EACH PO (13:06)
--- NOTE | 2016-11-01 13:07 | Patient Discharge Instructions ---
Discharge Instructions General Discharge Information You were seen/treated for: communit aquired PNA Special Instructions: - PLease complete the antibiotics and prednisone as directed - Please follow up with dr Mcbride in 1 week of discharge You will need repeat CT scan of the chest in 3 months - Please follow up with your PCP -Please follow up with Dr. Hill for thyroid nodule. Acute Coronary Syndrome Inclusion Criteria At DC or during hospital stay patient has or had the following: ACS DIAGNOSIS No Discharge Core Measures Meds if any: Prescribed or Continued at Discharge Meds if any: NOT Prescribed or Continued at Discharge Congestive Heart Failure Inclusion Criteria At DC or during hospital stay patient has or had the following: CHF DIAGNOSIS No Discharge Core Measures Meds if any: Prescribed or Continued at Discharge Meds if any: NOT Prescribed or Continued at Discharge Cerebrovascular accident Inclusion Criteria At DC or during hospital stay patient has or had the following: CVA/TIA Diagnosis No Discharge Core Measures Meds if any: Prescribed or Continued at Discharge Meds if any: NOT Prescribed or Continued at Discharge Venous thromboembolism Inclusion Criteria VTE Diagnosis No VTE Type NONE VTE Confirmed by (Test) NONE Discharge Core Measures - Per Current guidelines, there needs to be overlap - treatment for the first 5 days of Warfarin therapy. - If discharged on Warfarin prior to 5 days of - overlap therapy, the patient will need to be - assessed for post discharge needs including - *Post discharge parental anticoagulation - *Warfarin and/or parental anticoagulation education - *Follow up date to check INR post discharge At least 5 days overlap therapy as Inpatient No Meds if any: Prescribed or Continued at Discharge Note: Overlap Therapy is Warfarin and Anticoagulant Meds if any: NOT Prescribed or Continued at Discharge
[2016-11-01] MEDS ORDERED: PREDNISONE10 M2 PO (13:08)
[2016-11-01 14:14] VITALS: BP 130/68
[2016-11-01 22:31] VITALS: BP 115/60
[2016-11-02 06:16] VITALS: BP 128/82
--- NOTE | 2016-11-02 07:00 | PN- Housestaff ---
MARILIA BARTH,MELCHOR 11/02/16 0659: Subjective Follow-up For: copd exacerbation pneumonia Subjective: Pt seen today, feels well, ready to go home. she was on 1L, appears comfortable sitting in bed. she has been ambulating since yesterday. Review of Systems Constitutional: Reports: see HPI. Objective Last 24 Hrs of Vital Signs/I&O Vital Signs Date Time Temp Pulse Resp B/P B/P Pulse O2 O2 Flow FiO2 Mean Ox Delivery Rate 11/02 06 97.6 70 20 128/82 94 Nasal 1.0L Cannula 11/02 0000 Nasal 1.0L Cannula 11/02 0000 96 Nasal 1.0L Cannula 11/01 2231 97.9 85 22 115/60 94 Nasal 1.0L Cannula 11/01 1925 90 Room Air 11/01 1558 95 Nasal 2.0L Cannula 11/01 1536 92 Nasal 3.0L Cannula 11/01 1414 98.1 97 20 130/68 97 Nasal 2.0L Cannula 11/01 1400 87 Nasal 2.0L Cannula 11/01 0942 72 124/70 Intake & Output 11/02 1600 11/02 0800 11/02 0000 Intake Total 100 900 Output Total Balance 100 900 Intake, Oral 100 900 Physical Exam General Appearance: Alert, Oriented X3, Cooperative, No Acute Distress Cardiovascular: Regular Rate, Normal S1, Normal S2 Lungs: mild wheeze heard Abdomen: Normal Bowel Sounds, Soft, No Tenderness Neurological: Normal Speech Extremities: No Edema Current Medications: Current Medications Sig/Chirag Start time Last Medication Dose Route Stop Time Status Admin Acetaminophen 650 MG Q6P PRN 10/30 1530 AC 05/02 PO 1820 Acetaminophen/ 1 TAB Q6P PRN 10/30 1530 AC Hydrocodone Bitart PO Albuterol Sulfate 3 ML Q4P PRN 10/30 1915 AC INH Amoxicillin/ 875 MG Q12 11/01 2200 AC 05/03 Clavulanate Potassium PO 2137 Atorvastatin Calcium 10 MG 1700 / 1700 AC 05/03 PO 1550 Azithromycin 500 MG Q24H / 1600 DC 05/03 Sodium Chloride 250 ML IV / 2159 1548 Budesonide/ 2 PUF BID 10/30 2200 AC 05/03 Formoterol Fumarate INH 2138 Ceftriaxone Sodium 1,000 MG Q24H /02 1600 DC 05/02 IV 1558 Enoxaparin Sodium 40 MG DAILY 10/31 1000 AC 11/01 SC 0944 Fentanyl Citrate 75 MCG Q72H 10/30 2330 AC 11/01 TOP 2239 Gabapentin 300 MG DAILY 10/31 1000 AC 11/01 PO 0942 Gabapentin 600 MG QPM 10/30 2200 AC 11/01 PO 2137 Insulin Aspart 0 TIDAC 10/30 1700 AC 11/01 SC 1715 Insulin Detemir 35 UNITS .STK-MED ONE 11/02 2007 DC SC 11/01 2008 Insulin Detemir 35 UNITS BID 10/30 2200 AC 11/01 SC 2136 Lisinopril 2.5 MG DAILY 10/31 1000 AC 11/01 PO 0942 Methylprednisolone 40 MG 0600,1800 10/31 1800 DC 11/01 IV 0613 Paroxetine HCl 50 MG DAILY 10/31 1000 AC 11/01 PO 0943 Patient Medication 1 ED ONE ONE 11/01 1415 DC Teaching ED 11/01 1416 Prednisone 40 MG DAILY 11/02 1000 AC PO 11/04 1001 Prednisone 40 MG DAILY 11/01 1000 DC PO 11/03 1001 Prednisone 20 MG ONCE ONE 11/01 1000 DC 11/01 PO 11/01 1001 0943 Assessment/Plan Assessment: 81-year-old female with PMH of non-oxygen dependen COPD, insulin-dependent diabetes mellitus, hypertension, psoriatic arthritis who presents to the [facility] with persistent shortness of breath congestion and productive sputum. She required up to 4L of O2. Patient was admitted for COPD exacerbation with suspected community acquired pneumonia. # COPD exacerbation with suspicion for pneumonia, given the clinical picture of productive sputum and elevated WBC. Even though the radiological evidence is negative. Chest x-ray can be negative initially with this acute onset of symptoms - Strep and Legionella urinary antigen negative - Ct chest showed Interval development of multifocal ill-defined nodular opacities in the right upper lobe and one small focus in the right lower lobe. Findings are most consistent with interval development of pneumonitis. Close clinical correlation and follow-up CT scan of the chest in 3 months is suggested for reassessment. No significant change in scattered small pulmonary nodules dating back to 2013, consistent with a benign etiology. Borderline enlarged mediastinal lymph nodes, most likely reactive to the inflammatory process in the right lung. These can also be reevaluated at the time of the above suggested follow-up CT scan. * Continue prednisone 40 (dc on slow taper) * Dr. Mcbirde aware that pt is admitted * Continue azithromycin * Dc on augmentin * F/U CT scan chest in 3 months * will go home on o2 # History of insulin-dependent diabetes mellitus # H/o diabetic neuropathy * Accucheck and insulin # History of psoriatic arthritis * Continue with psoriatic arthritis medications # History of incidental thyroid nodule on the ultrasound - CT chest: enlarged nodular thyroid gland. The previous thyroid ultrasound from 2009 had revealed an multinodular goiter. Would recommend repeat thyroid ultrasound to more carefully compare the thyroid for interval changes. Pt reported just having thyroid US done the week prior to admission and will follow up with Dr. Hill. # H/o depression and anxiety * Continue paxil # Home meds * Continue lisinopril and statin mild pain pathway diet: diabetic diet dvt ppx: alps and lovenox full code Problem List: 1. COPD exacerbation 2. Pneumonia Pain Ratin Pain Location: none Pain Goal: Remain pain free Pain Plan: none Tomorrow's Labs & Rationales: none DVT/Prophylaxis: mechanical, pharmacological ADRIANA ROUSE 11/02/16 1142: Attending MD Review Statement Attending Statement Attending MD Statement: examined this patient, discuss w/resident/PA/MOBILE SECURITY ARCHITECT, agreed w/resident/PA/MOBILE SECURITY ARCHITECT, discussed with family, reviewed EMR data (avail), discussed with nursing, discussed with case mgmt, reviewed images, amended to note Attending Assessment/Plan: 81 y/o F with pmh sig for COPD not on home oxygen, insulin-dependent diabetes mellitus, hypertension, psoriatic arthritis, incidental thyroid nodule admitted with acute resp failure, acute COPD exacerbation and possible acute community acquired PNA. Patient clinically improved with slow course, taper steroids, antibiotics as well as TRC nebs. Will continue her inhalers. Sputum cultures will be obtained. Consult pulmonology if symptoms worsen. resume home meds, gi/ dvt prophyalxis, full code. f/u o/p PCP in 1 week of d/c and Dr Hill as scheduled appt for thyroid nodule and Dr Mcbride as o/p in 1-2 weeks.
--- NOTE | 2016-11-02 10:30 | NUR ---
NURSING NOTE: PT O2 SAT ON RA ON REST 88%, SAT ON RA WHILE AMBULATING TO BR 86%. ON 1L NC O2 SAT ON REST 94%, WHEN AMBULATING IN CRUZ 02 SAT ON 1L NC 91% AND PULSE WAS IN THE 130'S BUT UPON REST PULSE WENT BACK DOWN TO 86, BP 122/78 PT DENIES ANY CHEST PAIN. MELCHOR CAPELLAN #[id number] AWARE. NO FURTHER ORDERS AT THIS TIME. WILL CONTINUE TO MONITIOR.
[2016-11-02 13:33] VITALS: BP 144/64
== END 2016-11-02 15:25 | DRG 190 ==
LOC: ERH 13:00 → ERHI 15:28 → 2NB 15:28 → ENRESERV 16:08 → 2NB 17:01 → ENPENDDIS 11-02 11:11 → 2NB 11-02 15:25
PROVIDERS: Internal Medicine Nephrology; Physician Assistant; Radiology Diagnostic Radiology; ADMIT Hospitalist
DX: J44.0 Chronic obstructive pulmonary disease with (acute) lower respiratory infection (principal); J18.9 Pneumonia, unspecified organism; J96.01 Acute respiratory failure with hypoxia; E11.40 Type 2 diabetes mellitus with diabetic neuropathy, unspecified; J44.1 Chronic obstructive pulmonary disease with (acute) exacerbation; L40.50 Arthropathic psoriasis, unspecified; Z79.4 Long term (current) use of insulin; I10 Essential (primary) hypertension; E04.1 Nontoxic single thyroid nodule; E78.5 Hyperlipidemia, unspecified; J45.909 Unspecified asthma, uncomplicated; G43.909 Migraine, unspecified, not intractable, without status migrainosus; K21.9 Gastro-esophageal reflux disease without esophagitis; F41.8 Other specified anxiety disorders; E03.9 Hypothyroidism, unspecified
CPT/HCPCS: 2NBSP; 82436; 87040; 87070; 87071; 87449; 87450; 93005; 93010; 96374; J0456; J0696; J1650; J1815; J2920; J2930; J3490; J7040

== ENCOUNTER 2016-12-02 14:17 | Emergency (ER) | payer OTHER, MEDICARE ==
[~2016-12-02] VITALS: Ht 175.3 cm; Wt 104.3 kg
[~2016-12-02 14:17] MED LIST changes: +AMOX-CLAV 875-1 EACH PO; +PREDNISONE10 M2 PO
--- NOTE | 2016-12-02 15:18 | ED UPPER/LOWER EXTREMITY COMPL ---
History of Present Illness General Chief Complaint: Lower Extremity Problems Stated Complaint: SENT FROM URGENT CARE FOR US OF LEFT KNEE/CALF Source: patient, family, old records Exam Limitations: no limitations Vital Signs & Intake/Output Vital Signs & Intake/Output Vital Signs Date Time Temp Pulse Resp B/P B/P Pulse O2 O2 Flow FiO2 Mean Ox Delivery Rate 12/02 1640 98.3 92 20 146/80 93 Room Air 12/02 1446 Room Air 12/02 1426 97.2 106 18 125/69 95 Room Air Allergies Coded Allergies: codeine (HIVES 01/26/16) Reconcile Medications Amoxicillin/Clavulanate Potass (Amox-Clav 875-125 MG Tablet) 875 MG-125 MG TABLET 1 TAB PO BID Pneumonia Apremilast (Otezla) 30 MG TABLET 1 TAB PO BID PSORIATIC ARTHRITIS (Reported) Budesonide/Formoterol Fumarate (Symbicort 80-4.5 Mcg Inhaler) 80 MCG-4.5 MCG/ ACTUATION HFA.AER.AD 2 PUF INH BID COPD (Reported) Calcium Carbonate/Vitamin D3 (Calcium + Vitamin D Tablet) 1 EACH TABLET 1 TAB PO BID SUPPLEMENT (Reported) Fentanyl 75 MCG/HOUR PATCH.TD72 1 PAT TOP Q48 PAIN (Reported) Folic Acid 1 MG TABLET 1 TAB PO BID VITAMIN SUPPORT (Reported) Gabapentin 300 MG CAPSULE 1 CAP PO DAILY NEUROPATHY (Reported) Gabapentin 300 MG CAPSULE 2 CAP PO QPM NEUROPATHY (Reported) Insulin Glargine,Hum.rec.anlog (Lantus Solostar) 100 UNIT/ML (3 ML) INSULN.PEN 35 UNIT SC BID DIABETES (Reported) Insulin Lispro (Humalog) (Unknown Strength) VIAL 1 UNIT SC SEE SLIDING SCALE DIABETES (Reported) Consult your sliding scale (if there is any discrepancy, please follow your pre-hospital sliding scale) blood sugar dose less than 80 initiate hypoglycemia 80-100 plus 2 units 101-150 plus 4 units 151-200 plus 6 units 201-250 plus 8 units 251-300 plus 10 units 301-350 plus 12 units 351-400 plus 14 units more than 400 plus 14 units, call Lisinopril 2.5 MG TABLET 1 TAB PO DAILY HTN (Reported) Lorazepam (Ativan) 0.5 MG TABLET 1 TAB PO BIDP PRN ANXIETY Lovastatin 40 MG TABLET 2 TAB PO QPM CHOLESTEROL (Reported) with food Methotrexate 2.5 MG TABLET 7 TAB PO QSUN PSORIATIC ARTHRITIS (Reported) Oxybutynin Chloride 5 MG TABLET 1 TAB PO BID BLADDER (Reported) Paroxetine HCl 40 MG TABLET 1.5 TAB PO DAILY DEPRESSION (Reported) Prednisone 10 MG TABLET 1 TAB PO SI COPD then take 40 mg daily for the next 2 days then take 30 mg daily for the next 3 days then take 20 mg daily for the next 3 days then take 10 mg daily for the next 3 days then stop Triage Note: PT SIB FOR R/O DVT IN L LEG. PT REPORTING WORSENING PAIN IN L LEG OVER PAST SEVERAL DAYS. NO SWELLING OR REDNESS NOTED. Triage Nurses Notes Reviewed? yes HPI: 81F PMH HTN, COPD, psoriatic arthritis, IDDM, recent admission for pneumonia one month ago presents wtih 1 week of severe left knee pain. Patient has chronic knee problems, history of right knee replacement 2003. 1 week ago she was standing up from the couch, felt pain in both knees, and fell onto her butt on the floor. Since then she has 8/10 left knee pain and uses her walker for assistane (prior to that was walking unassisted or with just a cane. Went to urgent care today who were concerned about DVT due to left calf tenderness. No erythema, swelling, or discoloration is noted. Past History Travel History Traveled to [place] past 21 day No Medical History Any Pertinent Medical History? see below for history Neurological: migraine EENT: NONE Cardiovascular: hypertension, hyperlipidemia Respiratory: asthma, COPD, PNA Gastrointestinal: GERD Hepatic: NONE Renal: NONE Musculoskeletal: chronic back pain Psychiatric: anxiety, depression Endocrine: hypothyroidism Blood Disorders: anemia Cancer(s): NONE ASSOCIATE PROFESSOR OF RADIOLOGY/Reproductive: NONE Other Medical Hx: Rheum: psoriatic arthritis History of MRSA: No History of VRE: No History of CDIFF: No Surgical History Surgical History: hip replacement, knee replacement Psychosocial History Who do you live with Daughter Services at Home None What is your primary language Malay Tobacco Use: Never used ETOH Use: occasional use Illicit Drug Use: denies illicit drug use Family History Family History, If Any: FATHER Relation not specified for: FH: hypertension Hx Contributory? No Review of Systems Review of Systems Constitutional: Reports: no symptoms. EENTM: Reports: no symptoms. Respiratory: Reports: no symptoms. Cardiovascular: Reports: no symptoms. Gastrointestinal/Abdominal: Reports: no symptoms. Genitourinary: Reports: no symptoms. Musculoskeletal: Reports: see HPI. Skin: Reports: no symptoms. Neurological/Psychological: Reports: no symptoms. Hematologic/Endocrine: Reports: no symptoms. Immunological: Reports: no symptoms. All Other Systems: Reviewed and Negative Physical Exam Physical Exam General Appearance: well developed/nourished, no apparent distress Head: atraumatic Ears, Nose, Throat: normal ENT inspection Neck: normal inspection, supple Cardiovascular/Respiratory: normal breath sounds, regular rate/rhythm Back: normal inspection, normal range of motion Knee Left: normal inspection, pain, limited range of motion Neurologic/Tendon: normal sensation, normal motor functions, no evidence tendon injury Progress Differential Diagnosis: contusion, dislocation, DVT, fracture, sprain, tendon injury, osteoarthritis Plan of Care: Orders Procedure Date/time Status XRY-KNEE, LEFT 12/02 1516 Active US-UNILATERAL VENOUS DOPPLER 12/02 142 Active OBTAIN LEFT KNEE X-RAY TO RULE OUT FRACTURE AND LLE U/S TO RULE OUT DVT KNEE X-RAY SHOWS FRACTURE TO PROXIMAL FIBULA, REPEAT TIB/FIB SHOWS NO OTHER FRACTURE. CONVERSATION WITH DR. PABLO ORTHOPEDICS, NO CASTING REQUIRED, PATIENT MAY WBAT AND FOLLOW UP OUTPATIENT WITH DR. PABLO. RESULTS DISCUSSED WITH PATIENT. (LOLLY BARTH,ELAYNE) Diagnostic Imaging: Viewed by Me: Radiology Read. Discussed w/RAD: Radiology Read. Radiology Impression: PATIENT: CARYN MASON PRESENT AGE: 81 PATIENT ACCOUNT NO: [id number] : 37 LOCATION: [facility] ORDERING PHYSICIAN: ELAYNE AMBROCIO MD SERVICE DATE: 12/02/16 EXAM TYPE : RAD - [id number], LEFT EXAMINATION: XR TIBIA AND FIBULA, LEFT CLINICAL INFORMATION: Pain. COMPARISON: None TECHNIQUE: AP and lateral views of the left tibia and fibula were obtained. FINDINGS: There is a proximal fibular comminuted fracture as described on the left knee exam. No additional fracture seen involving the tibia and fibula. The soft tissues are normal. IMPRESSION: Proximal fibular comminuted fracture as described in the left knee exam. No additional fracture or bony abnormality seen. DICTATED BY: ANDRIY BARTHRAYMON DATE/ TIME DICTATED:12/02/161706 PHARMACOLOGY PROFESSOR:JORDAN DATE/TIME TRANSCRIBED: 06/03/17 / 1707 CONFIDENTIAL, DO NOT COPY WITHOUT APPROPRIATE AUTHORIZATION. < Electronically signed in Other Vendor System> SIGNED BY: ANDRIY BARTH,RAYMON [id number] Departure Departure Time of Disposition: 1752 Disposition: HOME OR SELF CARE Condition: Stable Clinical Impression Primary Impression: Closed fracture of proximal end of left fibula Referrals: PARVIN BARTH,MALISSA Gilbert (PCP/Family) SAMY BARTH,CRISS Additional Instructions: MAY BEAR WEIGHT ON LEG TOLERATED. CAN WRAP IN PHU BANDAGE FOR CUSHION AND SUPPORT. REST AND ELEVATION. TYLENOL FOR PAIN. FOLLOW UP WITH DR. PABLO OUTPATIENT THIS WEEK. Departure Forms: Customer Survey General Discharge Information
--- NOTE | 2016-12-02 15:56 | ULTRASOUND REPORT ---
EXAMINATION: US TRIPLEX LOWER EXTREMITY, LEFT. CLINICAL INFORMATION: Left leg swelling. COMPARISON: None TECHNIQUE: Color-flow triplex imaging with spectral analysis and compression Doppler were performed on the lower extremity. FINDINGS: Respiratory variation, normal compression and augmented flow are noted throughout the left lower extremity. The visualized common femoral vein, superficial femoral vein, profunda femoral vein, popliteal vein and midcalf peroneal and posterior tibial venous segments show no evidence of deep venous thrombosis. There is normal color flow seen in the right common femoral vein. There is a small anechoic fluid collection in popliteal fossa measuring 2.37 x 0.63 x 1.1 cm consistent with a small Mcclellan's cyst. IMPRESSION: Normal venous study left lower leg and right common femoral vein. There is no evidence of DVT. Small Mcclellan's cyst.
--- NOTE | 2016-12-02 15:59 | RADIOLOGY REPORT ---
EXAMINATION: XR KNEE, LEFT CLINICAL INFORMATION: Fall with knee pain. COMPARISON: None TECHNIQUE: Four views of the left knee. FINDINGS: There is a nondisplaced vertical comminuted fracture proximal fibula involving the medial cortex and the head of the fibula. There is mild displacement seen. No additional fractures seen. There is mild loss of medial and patellofemoral compartment joint space with degenerative spurring. IMPRESSION: Comminuted proximal fibular fracture with mild displacement.
[2016-12-02 16:40] VITALS: BP 146/80
--- NOTE | 2016-12-02 17:13 | RADIOLOGY REPORT ---
EXAMINATION: XR TIBIA AND FIBULA, LEFT CLINICAL INFORMATION: Pain. COMPARISON: None TECHNIQUE: AP and lateral views of the left tibia and fibula were obtained. FINDINGS: There is a proximal fibular comminuted fracture as described on the left knee exam. No additional fracture seen involving the tibia and fibula. The soft tissues are normal. IMPRESSION: Proximal fibular comminuted fracture as described in the left knee exam. No additional fracture or bony abnormality seen.
== END 2016-12-02 18:05 ==
LOC: ERH 14:17
DX: S82.832A Other fracture of upper and lower end of left fibula, initial encounter for closed fracture (principal); W19.XXXA Unspecified fall, initial encounter; Y92.9 Unspecified place or not applicable; Y93.9 Activity, unspecified; M79.662 Pain in left lower leg
CPT/HCPCS: 73560-LT; 73590-LT

== ENCOUNTER 2017-07-24 16:58 | Inpatient (IN) | payer OTHER, MEDICARE ==
[~2017-07-24] VITALS: Ht 175.3 cm; Wt 108.4 kg
--- NOTE | 2017-07-24 18:06 | RADIOLOGY REPORT ---
EXAMINATION: XR CHEST CLINICAL INFORMATION: Cough for 2 weeks COMPARISON: Chest CT from 05/01/2017 TECHNIQUE: 2 views of the chest were obtained. FINDINGS: The thoracic aorta is unfolded. There is fullness of the right hilum, which may be accentuated by technique. No discrete consolidation is visualized. No evidence of pulmonary edema. No pleural effusion or pneumothorax. The bones appear demineralized and there is multilevel degenerative change of the spine without evidence of acute osseous abnormality. IMPRESSION: No convincing consolidation. Fullness of the right hilum, which may relate to obliquity/technique, however adenopathy is not excluded, and consider correlation with chest CT.
--- NOTE | 2017-07-24 19:20 | ED DYSPNEA/ASTHMA COMPLAINT ---
History of Present Illness General Chief Complaint: Dyspnea (COPD, CHF, Other) Stated Complaint: SIB MD ROSE SOB Source: patient, family, old records Exam Limitations: no limitations Vital Signs & Intake/Output Vital Signs & Intake/Output Vital Signs Date Time Temp Pulse Resp B/P B/P Pulse O2 O2 Flow FiO2 Mean Ox Delivery Rate 07/24 2099 96 Nasal 3.0L Cannula 07/24 2016 96.5 74 18 141/69 92 Nasal 3.0L Cannula 07/24 1729 97.0 83 18 118/53 92 Room Air Allergies Coded Allergies: codeine (HIVES 01/26/16) Triage Note: PER PT HARSH COUGH X 2 WEEKS WORSE AT NIGHT SENT IN BY DR. COLON FEVER OR PAIN Triage Nurses Notes Reviewed? yes Onset: Gradual Duration: constant Timing: recent history Severity: moderate HPI: Patient is AN 82 Y/O female with a past medical history of COPD not on home O2, psoriatic arthritis, hypertension, diabetes and diabetic neuropathy anxiety depression who presents emergency note approximate 2 weeks ago she began developing a productive brown cough dyspnea on exertion and generalized weakness and fatigue patient was evaluated at primary care doctor a week ago was given azithromycin and prednisone patient returned to primary care doctor today and stated that she feels no better and was advised presents to emergency room. Body aches dyspnea on exertion wheezing shortness of breath and cough still persists. 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 Budesonide/Formoterol Fumarate (Symbicort 80-4.5 Mcg Inhaler) 80 MCG-4.5 MCG/ ACTUATION HFA.AER.AD 2 PUF INH BID COPD (Reported) Calcium Carbonate/Vitamin D3 (Calcium + Vitamin D Tablet) 1 EACH TABLET 1 TAB PO BID SUPPLEMENT (Reported) Fentanyl 75 MCG/HOUR PATCH.TD72 1 PAT TOP Q48 PAIN (Reported) Folic Acid 1 MG TABLET 1 TAB PO DAILY SUPPLEMENT (Reported) Gabapentin 300 MG CAPSULE 1 CAP PO DAILY NEUROPATHY (Reported) Gabapentin 300 MG CAPSULE 2 CAP PO QPM NEUROPATHY (Reported) Insulin Glargine,Hum.rec.anlog (Lantus Solostar) 100 UNIT/ML (3 ML) INSULN.PEN 35 UNIT SC BID DIABETES (Reported) Insulin Lispro (Humalog) (Unknown Strength) VIAL 1 UNIT SC SEE SLIDING SCALE DIABETES (Reported) Consult your sliding scale (if there is any discrepancy, please follow your pre-hospital sliding scale) blood sugar dose less than 80 initiate hypoglycemia 80-100 plus 2 units 101-150 plus 4 units 151-200 plus 6 units 201-250 plus 8 units 251-300 plus 10 units 301-350 plus 12 units 351-400 plus 14 units more than 400 plus 14 units, call Lisinopril 2.5 MG TABLET 1 TAB PO DAILY HTN (Reported) Lovastatin 40 MG TABLET 2 TAB PO QPM CHOLESTEROL (Reported) with food Methotrexate 2.5 MG TABLET 7 TAB PO QSUN PSORIATIC ARTHRITIS (Reported) Oxybutynin Chloride 5 MG TABLET 1 TAB PO BID BLADDER (Reported) Paroxetine HCl 40 MG TABLET 1.5 TAB PO DAILY DEPRESSION (Reported) Prednisone 10 MG TABLET 1 TAB PO DAILY COPD take 6 (60mg) tabs 07/28, 07/29. take 5 (50mg) tabs 07/30, 07/31 take 4 (40mg) tabs 08/01, 08/02 take 3 (30mg) tabs /, 2/3 tab 2 (20mg) tabs /, 08/06 tab 1 (10mg) 08/07 (Desi BARTH,Jarred Calderon) Past History Travel History Traveled to [place] past 21 day No Medical History Any Pertinent Medical History? 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 No (Kleber GRAY,Everett) Review of Systems Review of Systems Constitutional: Reports: see HPI, chills. EENTM: Reports: no symptoms. Respiratory: Reports: see HPI, cough, short of breath. Cardiovascular: Reports: see HPI. Denies: chest pain. GI: Reports: no symptoms. Genitourinary: Reports: no symptoms. Musculoskeletal: Reports: see HPI, joint pain, muscle pain. Skin: Reports: no symptoms. Neurological/Psychological: Reports: no symptoms. Hematologic/Endocrine: Reports: no symptoms. Immunologic/Allergic: Reports: no symptoms. All Other Systems: Reviewed and Negative (Everett Bazan) Physical Exam Physical Exam General Appearance: no apparent distress, alert, obese Head: atraumatic Eyes: Bilateral: normal appearance. Ears, Nose, Throat: normal ENT inspection, hearing grossly normal Neck: normal inspection, full range of motion Respiratory: no respiratory distress, rhonchi, wheezing Cardiovascular: regular rate/rhythm Peripheral Pulses: 2+ radial (R) Gastrointestinal: normal bowel sounds, soft, non-tender Extremities: normal inspection, normal capillary refill, no edema Neurologic/Psych: no motor/sensory deficits, awake, alert Skin: intact, normal color, warm/dry Core Measures ACS in differential dx? No CVA/TIA Diagnosis No Sepsis Present: No Sepsis Focused Exam Completed? No (Everett Bazan) Progress Differential Diagnosis: asthma, AMI, bronchitis, costochondritis, CHF, COPD, musculoskeletal pain, pericarditis, pulmonary embolism, pneumonia, pneumothorax, unstable angina Plan of Care: Orders Procedure Date/time Status AEROSOL CHG 07/27 UNK Complete OXYGEN 07/27 UNK Complete OXYGEN DAILY CHARGE 07/27 UNK Complete On initial examination patient was resting, bedside no respiratory distress however patient has significant rhonchi and wheezing. Patient was given nebulizer treatments with minimal resolution of wheezing patient noted to be at rest between 91 and 92% patient was given nasal cannula oxygen supplementation patient was ambulated within a few steps she desatted to 88% room air had mild shortness of breath it's estimation Diagnostic Imaging: Viewed by Me: Radiology Read. Radiology Impression: SEE COMMENTS Initial ED EKG: normal p-waves, 76 BPM, LVH, SINUS RHYTHM Comments: PATIENT: CARYN MASON PRESENT AGE: 82 PATIENT ACCOUNT NO: [id number] : 37 LOCATION: [facility] ORDERING PHYSICIAN: Everett GRAY SERVICE DATE: 07/24/17-2021 EXAM TYPE: CAT - CT CHEST W IV CONTRAST EXAMINATION: CT CHEST WITH CONTRAST CLINICAL INFORMATION: Cough, shortness of breath. Follow-up abnormal exam. COMPARISON: Same day chest radiograph. TECHNIQUE: Contiguous axial thin section helical images of the chest were performed following the administration of 75 mL of intravenous Optiray 320. The data set was reformatted in the coronal and sagittal planes and reviewed on an independent workstation. DLP: 444 mGy-cm. FINDINGS: There is a heterogeneous nodule within the isthmus measuring 2.5 cm best demonstrated on image 34/504. The heart is of normal size. There is no pericardial effusion. There is neither mediastinal nor hilar lymphadenopathy. There are no chest wall masses. There are scattered bilateral axillary lymph nodes, not significantly changed from prior exam. The largest is on the left measuring approximately 13 mm in short axis. Review of lung windows demonstrates that there are neither pleural effusions nor pneumothoraces. There is mild biapical scarring. There are no consolidations. There is atelectasis within the lateral segment right middle lobe. There is also atelectasis within the posterior basal segment of the left lower lobe. Within the right upper lobe on image 97/504, there is a stable 3 mm nodule. The visualized upper abdomen demonstrates that the liver is of normal size and attenuation without focal lesions. Normal adrenal glands are identified. Bone windows: Neither sclerotic nor lytic bone lesions are identified. IMPRESSION: No demonstrable lymphadenopathy. Right middle lobe and left lower lobe atelectasis. Stable right upper lobe 3 mm nodule. Stable left axillary lymph node. DICTATED BY: Don Garduno MD DATE/TIME DICTATED:07/24/172158 AREA SALES MANAGER:JORDAN DATE/TIME TRANSCRIBED:07/24/172158 CONFIDENTIAL, DO NOT COPY WITHOUT APPROPRIATE AUTHORIZATION. <Electronically signed in Other Vendor System> SIGNED BY: Don Garduno MD 07/24/174 PATIENT: CARYN MASON PRESENT AGE: 82 PATIENT ACCOUNT NO: [id number] : 37 LOCATION: [facility] ORDERING PHYSICIAN: Jarred Weeks MD SERVICE DATE: 07/24/17-171 EXAM TYPE: RAD - XRY-CHEST XRAY, TWO VIEWS EXAMINATION: XR CHEST CLINICAL INFORMATION: Cough for 2 weeks COMPARISON: Chest CT from 05/01/2017 TECHNIQUE: 2 views of the chest were obtained. FINDINGS: The thoracic aorta is unfolded. There is fullness of the right hilum, which may be accentuated by technique. No discrete consolidation is visualized. No evidence of pulmonary edema. No pleural effusion or pneumothorax. The bones appear demineralized and there is multilevel degenerative change of the spine without evidence of acute osseous abnormality. IMPRESSION: No convincing consolidation. Fullness of the right hilum, which may relate to obliquity/technique, however adenopathy is not excluded, and consider correlation with chest CT. DICTATED BY: Skylar Cano MD DATE/TIME DICTATED:07/24/171799 AREA SALES MANAGER:JORDAN (Everett Bazan) Departure Departure Disposition: STILL A PATIENT Condition: Stable Clinical Impression Primary Impression: COPD exacerbation Secondary Impressions: Bronchitis Referrals: Mague Rose MD (PCP/Family) Departure Forms: Customer Survey General Discharge Information Admission Note Spoke With: Sean Whitehead MD Documentation of Exam: Documentation of any treatments & extenuating circumstances including Concerns Regarding Discharge (functional status, medication knowledge or non-compliance, living conditions, etc.) that warrant an admission rather than observation: [ Discussed this patient with Dr. WHITEHEAD agrees with general medicine admission for concerns a COPD exacerbation and bronchitis, patient requires IV Solu-Medrol , repeated nebulizer treatments pulmonary consultation repeat labs antitussive medication patient HAS FAILED outpatient treatment of prednisone and azithromycin] (Everett Bazan) Departure Prescriptions: Current Visit Scripts Azithromycin 1 TAB PO DAILY #2 TAB . Prednisone 1 TAB PO DAILY #5 TAB take 6 (60mg) tabs 07/28, 07/29. take 5 (50mg) tabs 07/30, 07/31 take 4 (40mg) tabs 08/01, 08/02 take 3 (30mg) tabs 2/2, 2/3 tab 2 (20mg) tabs 2/4, 2/5 tab 1 (10mg) 2/6 PA/TIME BROKER Co-Sign Statement Statement: ED Attending supervision documentation- [x] I saw and evaluated the patient. I have also reviewed all the pertinent lab results and diagnostic results. I agree with the findings and the plan of care as documented in the PA's/TIME BROKER's documentation. pt presents for evaluation of dyspnea. exam reveals decreased breath sounds with scattered wheezes and rhonchi. [] I have reviewed the ED Record and agree with the PA's/TIME BROKER's documentation. [] Additions or exceptions (if any) to the PAs/TIME BROKER's note and plan are summarized below: [] (Desi BARTH,Jarred Calderon) Critical Care Note Critical Care Note Critical Care Time: non-applicable (Everett Bazan) DATE/TIME TRANSCRIBED:07/24/172158 CONFIDENTIAL, DO NOT COPY WITHOUT APPROPRIATE AUTHORIZATION. <Electronically signed in Other Vendor System> SIGNED BY: Don Garduno MD 07/24/172207 PATIENT: CARYN MASON PRESENT AGE: 82 PATIENT ACCOUNT NO: [id number] : 37 LOCATION: [facility] ORDERING PHYSICIAN: Jarred Weeks MD SERVICE DATE: 07/24/17 EXAM TYPE: RAD - XRY-CHEST XRAY, TWO VIEWS EXAMINATION: XR CHEST CLINICAL INFORMATION: Cough for 2 weeks COMPARISON: Chest CT from 05/01/2017 TECHNIQUE: 2 views of the chest were obtained. FINDINGS: The thoracic aorta is unfolded. There is fullness of the right hilum, which may be accentuated by technique. No discrete consolidation is visualized. No evidence of pulmonary edema. No pleural effusion or pneumothorax. The bones appear demineralized and there is multilevel degenerative change of the spine without evidence of acute osseous abnormality. IMPRESSION: No convincing consolidation. Fullness of the right hilum, which may relate to obliquity/technique, however adenopathy is not excluded, and consider correlation with chest CT. DICTATED BY: Skylar Cano MD DATE/TIME DICTATED:07/24/171799 AREA SALES MANAGER:JORDAN Departure Departure Disposition: STILL A PATIENT Condition: Stable Clinical Impression Primary Impression: COPD exacerbation Secondary Impressions: Bronchitis Referrals: Mague Rose MD (PCP/Family) Departure Forms: Customer Survey General Discharge Information Admission Note Spoke With: Sean Whitehead MD Documentation of Exam: Documentation of any treatments & extenuating circumstances including Concerns Regarding Discharge (functional status, medication knowledge or non-compliance, living conditions, etc.) that warrant an admission rather than observation: [ Discussed this patient with Dr. WHITEHEAD agrees with general medicine admission for concerns a COPD exacerbation and bronchitis, patient requires IV Solu-Medrol , repeated nebulizer treatments pulmonary consultation repeat labs antitussive medication patient HAS FAILED outpatient treatment of prednisone and azithromycin] Critical Care Note Critical Care Note Critical Care Time: non-applicable
[2017-07-24 20:41] LABS: ABSOLUTE BASOPHIL COUNT 0 /CUMM (0.0-0.2); ABSOLUTE EOSINOPHIL COUNT 0.3 /CUMM (0.0-0.7); ABSOLUTE GRANULOCYTE CT 5.3 /CUMM (1.4-6.5); ABSOLUTE LYMPH COUNT 4.1 /CUMM (1.2-3.4); ABSOLUTE MONOCYTE COUNT 1.1 /CUMM (0.10-0.60); BASOPHIL % 0.4 % (0.0-2.0); EOSINOPHIL % 2.4 % (0-5); GRANULOCYTE % 48.9 % (42.2-75.2); HEMATOCRIT 47.3 % (37-47); MEAN CORPUSCULAR HGB CONC 32.4 G/DL (33.0-37.0); MEAN CORPUSCULAR VOLUME 101.9 FL (81.0-99.0); MEAN PLATELET VOLUME 7.9 FL (7.4-10.4); PLATELET COUNT 306 /CUMM (130-400); RBC DISTRIBUTION WIDTH 15.5 % (11.5-14.5); RED BLOOD CELL CT 4.64 /CUMM (4.20-5.40); WHITE BLOOD CELL COUNT 10.8 /CUMM (4.8-10.8)
--- NOTE | 2017-07-24 22:08 | CT SCAN REPORT ---
EXAMINATION: CT CHEST WITH CONTRAST CLINICAL INFORMATION: Cough, shortness of breath. Follow-up abnormal exam. COMPARISON: Same day chest radiograph. TECHNIQUE: Contiguous axial thin section helical images of the chest were performed following the administration of 75 mL of intravenous Optiray 320. The data set was reformatted in the coronal and sagittal planes and reviewed on an independent workstation. DLP: 444 mGy-cm. FINDINGS: There is a heterogeneous nodule within the isthmus measuring 2.5 cm best demonstrated on image 34/504. The heart is of normal size. There is no pericardial effusion. There is neither mediastinal nor hilar lymphadenopathy. There are no chest wall masses. There are scattered bilateral axillary lymph nodes, not significantly changed from prior exam. The largest is on the left measuring approximately 13 mm in short axis. Review of lung windows demonstrates that there are neither pleural effusions nor pneumothoraces. There is mild biapical scarring. There are no consolidations. There is atelectasis within the lateral segment right middle lobe. There is also atelectasis within the posterior basal segment of the left lower lobe. Within the right upper lobe on image 97/504, there is a stable 3 mm nodule. The visualized upper abdomen demonstrates that the liver is of normal size and attenuation without focal lesions. Normal adrenal glands are identified. Bone windows: Neither sclerotic nor lytic bone lesions are identified. IMPRESSION: No demonstrable lymphadenopathy. Right middle lobe and left lower lobe atelectasis. Stable right upper lobe 3 mm nodule. Stable left axillary lymph node.
--- NOTE | 2017-07-24 22:42 | History & Physical ---
[facility] 07/24/17 7682: General Information and HPI MD Statement: I have seen and personally examined CARYN MASON and documented this H&P. The patient is a 82 year old F who presented with a patient stated chief complaint of [cough and SOB]. Source of Information: patient, family, old records Exam Limitations: no limitations History of Present Illness: The patient is a 52-year-old female with past medical history of COPD not on home oxygen, asthma, GERD, hypertension, hyperlipidemia, diabetes, diabetic neuropathy, urinary incontinence, depression and multinodular goiter. She presented to [facility] on 07/24 with complaint of cough and shortness of breath for past 2 weeks The patient was in usual state of health until 2 weeks back when she started experiencing cough. She has a baseline clear phlegm and the color of her sputum changed to light green. The patient went to her PCP 1 week back and was evaluated by [employer] DAY ARTIST started on a steroid taper and Z-Kiko. She went for a follow- up appointment yesterday reports no resolution of symptoms. The BEN DAY ARTIST suggested the patient to visit ED. Patient reports being up-to-date with flu and pneumonia shot. She denies any sick contacts. However states her daughter that lives with her is sick because of COPD as well. The patient has not been intubated in the past. She becomes dyspneic with exertion. She cannot walk one block without getting short of breath. Her last admission was 7 months ago when she was treated for COPD and community-acquired pneumonia. Patient denies any fever, chills, chest tightness, and pleuritic nature of chest pain. During the last visit she was diagnosed with axillary lymphadenopathy and the R upper lobe nodule 3 mm in size. She also diagnosed with multinodular goiter and she was supposed to follow-up with Dr. su which she did never did. Patient has history of overactive bladder with urge incontinence refractory to anticholinergics. She follows up with urology and underwent placement of neurostimulator in 2013 but does report improvement in symptoms. Allergies/Medications Allergies: Coded Allergies: codeine (HIVES 01/26/16) Home Med list Albuterol Sulfate (Proair Hfa) 90 MCG HFA.AER.AD 2 PUF INH Q4-6 PRN PRN COPD (Reported) Budesonide/Formoterol Fumarate (Symbicort 80-4.5 Mcg Inhaler) 80 MCG-4.5 MCG/ ACTUATION HFA.AER.AD 2 PUF INH BID COPD (Reported) Calcium Carbonate/Vitamin D3 (Calcium + Vitamin D Tablet) 1 EACH TABLET 1 TAB PO BID SUPPLEMENT (Reported) Fentanyl 75 MCG/HOUR PATCH.TD72 1 PAT TOP Q48 PAIN (Reported) Folic Acid 1 MG TABLET 1 TAB PO DAILY SUPPLEMENT (Reported) Gabapentin 300 MG CAPSULE 1 CAP PO DAILY NEUROPATHY (Reported) Gabapentin 300 MG CAPSULE 2 CAP PO QPM NEUROPATHY (Reported) Insulin Glargine,Hum.rec.anlog (Lantus Solostar) 100 UNIT/ML (3 ML) INSULN.PEN 35 UNIT SC BID DIABETES (Reported) Insulin Lispro (Humalog) (Unknown Strength) VIAL 1 UNIT SC SEE SLIDING SCALE DIABETES (Reported) Consult your sliding scale (if there is any discrepancy, please follow your pre-hospital sliding scale) blood sugar dose less than 80 initiate hypoglycemia 80-100 plus 2 units 101-150 plus 4 units 151-200 plus 6 units 201-250 plus 8 units 251-300 plus 10 units 301-350 plus 12 units 351-400 plus 14 units more than 400 plus 14 units, call Lisinopril 2.5 MG TABLET 1 TAB PO DAILY HTN (Reported) Lovastatin 40 MG TABLET 2 TAB PO QPM CHOLESTEROL (Reported) with food Methotrexate 2.5 MG TABLET 7 TAB PO QSUN PSORIATIC ARTHRITIS (Reported) Oxybutynin Chloride 5 MG TABLET 1 TAB PO BID BLADDER (Reported) Paroxetine HCl 40 MG TABLET 1.5 TAB PO DAILY DEPRESSION (Reported) Past History Travel History Traveled to [place] past 21 day No Medical History Neurological: migraine EENT: NONE Cardiovascular: hypertension, hyperlipidemia Respiratory: asthma, COPD, PNA Gastrointestinal: GERD Hepatic: NONE Renal: NONE Musculoskeletal: chronic back pain Psychiatric: anxiety, depression Endocrine: hypothyroidism Blood Disorders: anemia Cancer(s): NONE MA[employer]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 Home Who Do You Live With? child Services at Home: None Primary Language: Japanese Smoking Status: Never Smoked ETOH Use: denies use Illicit Drug Use: denies illicit drug use Functional Ability ADLs Independent: dressing, eating, toileting, bathing. Ambulation: cane IADLs Independent: shopping, housework, finances, food prep, telephone, transportation , medication admin. Review of Systems Review of Systems Constitutional: Reports: see HPI. Denies: chills, fever. EENTM: Reports: no symptoms. Cardiovascular: Reports: no symptoms. Respiratory: Reports: cough, short of breath. GI: Reports: no symptoms. Genitourinary: Reports: no symptoms. Musculoskeletal: Reports: joint swelling. Exam & Diagnostic Data Last 24 Hrs of Vital Signs/I&O Vital Signs Date Time Temp Pulse Resp B/P B/P Pulse O2 O2 Flow FiO2 Mean Ox Delivery Rate 07/25 011 98.1 91 20 120/72 94 07/25 0115 96 Nasal 3.0L Cannula 07/25 0046 97.6 91 22 130/55 94 Nasal 4.0L Cannula 07/240 Nasal 2.0L Cannula 07/24 2099 96 Nasal 3.0L Cannula 07/24 2016 96.5 74 18 141/69 92 Nasal 3.0L Cannula 07/24 1729 97.0 83 18 118/53 92 Room Air Intake & Output 07/25 0800 07/25 0000 07/24 1600 Intake Total 480 250 Output Total Balance 480 250 Intake, IV 250 Intake, Oral 480 Patient 239 lb 237 lb Weight Weight Reported by Patient Measurement Method Physical Exam General Appearance Alert, Oriented X3, Cooperative, No Acute Distress Skin No Rashes HEENT Atraumatic Neck JVD cannot be assesed, thyroid nodule? Lymphatic Axillary nl, Cervical nl Cardiovascular Normal S1, Normal S2, No Murmurs Lungs expiratory wheezes and ronchi Abdomen Normal Bowel Sounds, Soft, No Tenderness Last 24 Hrs of Labs/Camilo: Laboratory Tests 07/24/172246: Lactic Acid Cancelled 07/24/172031: Anion Gap 12, Estimated GFR > 60, BUN/Creatinine Ratio 31.7 H, Glucose 171 H, Lactic Acid 1.0, Calcium 9.5, Total Bilirubin 0.9, AST 21, ALT 36, Alkaline Phosphatase 77, Troponin I < 0.01, Total Protein 6.9, Albumin 4.0, Globulin 2.9, Albumin/Globulin Ratio 1.4, TSH 1.940, Free T4 1.47, CBC w Diff NO MAN DIFF REQ, RBC 4.64, MCV 101.9 H, MCH 33.0 H, RDW 15.5 H, MPV 7.9, Gran % 48.9, Lymphocytes % 38.4, Monocytes % 9.9 H, Eosinophils % 2.4, Basophils % 0.4, Absolute Granulocytes 5.3, Absolute Lymphocytes 4.1 H, Absolute Monocytes 1.1 H, Absolute Eosinophils 0.3, Absolute Basophils 0, PUBS MCHC 32.4 L Microbiology 07/24 2343 NASOPHARYN: Influenza Virus A & B Rapid Smear - COMP 07/24 2049 BLOOD: Blood Culture - RECD 07/24 2031 BLOOD: Blood Culture - RECD 07/24 1946 LOWER RESP: Respiratory Culture - COLB 07/24 1946 LOWER RESP: Gram Stain - COLB Diagnostic Data CXR Results IMPRESSION: No convincing consolidation. Fullness of the right hilum, which may relate to obliquity/technique, however adenopathy is not excluded, and consider correlation with chest CT. Other Results CT CHEST W IV CONTRAST IMPRESSION: No demonstrable lymphadenopathy. Right middle lobe and left lower lobe atelectasis. Stable right upper lobe 3 mm nodule. Stable left axillary lymph node. Assessment/Plan Assessment: The patient is a 52-year-old female with past medical history of COPD not on home oxygen, asthma, GERD, hypertension, hyperlipidemia, diabetes, diabetic neuropathy, depression and multinodular goiter. She presented to [facility] ED on with complaint of cough and shortness of breath for past 2 weeks VS WNL O2 saturation 92% on room air -Pertinent labs H/H 15/43 MCV 101.9 MCH 33 HCO3 35 BUN 19 -Imaging findings dictated above -In ED patient received IV azithromycin, Solu-Medrol 25 mg, DuoNeb and blood cultures x2 were drawn. On ambulation she desatted to 88% and was put on 2 L of nasal cannula satting at ---- The patient is being admitted to general medicine floor and is being evaluated and treated for following conditions #Acute exacerbation of COPD The patient is presenting with 2 weeks of cough, change in color of sputum and ambulatory desaturation. The last pulmonary function tests showed restrictive and obstructive ventilatory defect with a partially reversible component and resting desaturation. We are going to treat her for acute exacerbation of COPD. Patient has a HCO3 35 concening for compensatory metabolic alkalosis secondary to respiratory acidosis due to CODP -Monitor fever and WBC curve expected raising the count secondary to steroids -IV azithromycin -IV methylprednisone Q8 -Oxygen supplementation to maintain oxygen saturation above 92% -TRC/Serafin -Peak flow -Consider ABG's if detoriates -Pulmonology consult with Dr. Mcbride #DAVID The patient should be evaluated for obstructive sleep apnea -Consider outpt sleep study #Right upper lobe 3 mm nodule and left axillary lymph node-STABLE -Outpatient pulmonary surveillance with repeat imaging -If symptoms of weight loss and decreased appetite night sweats etc. or increase in size consider biopsy #Diabetes mellitus -Accu-Cheks and insulin sliding scale with nighttime coverage and levemir -Expect worsening of blood sugars secondary to steroids #Multinodular goiter Patient needs endocrinological follow-up. -Consider repeat thyroid ultrasound -Check TSH, free T4 -Outpatient referral to Dr. Su #Chronic medical conditions psoriatic arthritis, hypertension, diabetic neuropathy, hyperlipidemia, urinary incontinence and depression. Continue methotrexate, lisinopril, gabapentin, statin, oxybutynin and SSRI #FC/DVT prophylaxis with Lovenox/heart healthy diet. As Ranked By This Provider Problem List: 1. COPD Core Measures/Misc (03/18) Acute Coronary Syndrome ACS Diagnosis: No Congestive Heart Failure Congestive Heart Failure Diagnosis No Cerebrovascular Accident CVA/TIA Diagnosis: No VTE (View Protocol) VTE Risk Factors Age>40 No Mechanical VTE Prophylaxis d/t N/A MechProphylax Ordered No VTE Pharm Prophylaxis d/t NA PharmProphylax ordered Sepsis (View protocol) Sepsis Present: No Vida Deras 07/25/17 0034: Resident Review Statement Resident Statement: discussed with internal investigator Other Findings: 82-year-old woman with past medical history of COPD not on home oxygen, diabetes type 2 with neuropathy psoriatic arthritis on methotrexate, hyperlipidemia, depression and multinodular goiter presented to ER with complaint of productive cough with light greenish phlegm and difficulty breathing for last 2 weeks. A week ago she saw her PCP who prescribed her Zithromax and prednisone taper. According to patient she did not feel improved and saw her PCP again as a follow -up yesterday who recommended her to go to ER for further management. She also had a flu swab at PCP office that was negative. She reports dizziness but denies any fever, chills, sore throat, chest pain or discomfort, palpitations, hemoptysis, nausea, vomiting, abdominal pain. She reports on and off constipation and urinary incontinence. No dysuria. Dysphagia with baked chunks of food. She is a never smoker but has history passive smoking. Positive sick contacts. For her multinodular goiter she had thyroid biopsy long time ago with no known cytology report. She was referred to Dr. su for repeat ultrasound/thyroid biopsy on previous admission but she did not follow up with her after discharge. She also never had thyroid surgery evaluation. Upon arrival her temperature was 97, pulse 83, respiratory rate 18, blood pressure 118/53 and oxygen saturation 92% room air. She desaturated to 88% on ambulation and was put on 2 L of oxygen via nasal cannula. Pertinent physical exam findings: HEENT thyroid nodule palpable. No cervical lymphadenopathy. Palpable left axillary lymph nodes. Bilateral expiratory wheezes on lung auscultation. Heart regular rate without any murmurs. Trace bilateral pedal edema. Pertinent labs: MCV 101.9, HCO3 35, Glucose 171 Rapid flu negative. CXR: No convincing consolidation. Fullness of the right hilum. ? Adenopathy CT chest with IV contrast: No demonstrable lymphadenopathy. Right middle lobe and left lower lobe atelectasis. Stable right upper lobe 3 mm nodule. Stable left axillary lymph node. No pleural effusions nor pneumothoraces. There is mild biapical scarring. There are no consolidations. In ER she got respiratory treatment, Solu-Medrol and Zithromax. Assessment and plan 82-year-old woman with past medical history of COPD not on home oxygen, diabetes type 2 with neuropathy psoriatic arthritis on methotrexate, hyperlipidemia, depression and multinodular goiter. We are going to admit her general medicine floor for acute hypoxic respiratory failure secondary to possible COPD exacerbation. Vitals every shift. Continue TRC nebs. Continue supplemental oxygen and titrate to keep oxygen saturation more than 92%. Continue steroids and azithromycin. Follow up blood and sputum cultures. Continue all her home medications. We will notify Dr. Mcbride in a.m. Accu-Cheks before each meal and at bedtime. Patient need outpatient follow-up with Dr. su for her multinodular goiter. TSH and Free T4 normal. DVT prophylaxis. Pain management pathway. Full code. Sean Whitehead 07/25/17 0524: Attending MD Review Statement Attending Statement Attending MD Statement: examined this patient, discuss w/resident/PA/FIRE SPRINKLER DESIGNER, agreed w/resident/PA/FIRE SPRINKLER DESIGNER, discussed with family, reviewed EMR data (avail), reviewed images, amended to note Attending Assessment/Plan: CC: Persistent cough PMH: COPD not on home oxygen, DM, HTN, HLD, psoriatic arthritis, thyroid nodule, depression, urinary incontinence Patient came to ER for persistent cough since last 2 weeks, with mild phlegm production. Patient denies any fever, chills, chest tightness, pleuritic nature of chest pain, worsening of leg swelling, dizziness. She went to follow-up with primary care physician a week back when she was prescribed oral azithromycin and tapering dose of steroid, which did not help her much over the last week, today she went again to see her primary care physician and was suggested to go to ER. Many of her family members are sick. Rapid flu was done in PCP office which was negative. Vitals: Temperature 90.7, pulse 83, RR 18, blood pressure 118/53, saturating 92% on 3 L nasal cannula On exam: A O 3, cooperative, mild respiratory distress, neck supple, JVD cannot be assessed, no lymphadenopathy, mucosa moist, no focal neurological deficit, trace leg edema, so right PICC skin rashes no evidence of infection CVS: S1-S2, RRR. RS: Bilateral wheezing, prolonged expiration and rhonchi. Abdomen: Soft, NT , ND, bowel sounds present. Labs: CBC unremarkable except MCV 101.9. Sodium 143, potassium 4.9, chloride 96, bicarbonate 34, BUN 19, creatinine 0.6, anion gap 12, glucose 171, calcium 9.5, lactate 1.0, LFT unremarkable, troponin less than 0.01 CT chest: No demonstrable lymphadenopathy. Right middle lobe and left lower lobe atelectasis. Stable right upper lobe 3 mm nodule. Stable left axillary lymph node. Assessment and plan 82-year-old female with extensive past medical history presented in ER for persistent cough and sputum production since last 2 weeks not improved with outpatient tapering steroids and azithromycin. Rapid flu negative in primary care office. Patient does not have any significant leg edema, no symptoms of PND or orthopnea, JVD is difficult to assess, on auscultation she has prolonged expiration with wheezing, and rhonchi, appears to have COPD exacerbation not responding to outpatient treatment. Of note patient was supposed to follow-up for her thyroid nodule outpatient which she she did not. + COPD exacerbation + History of DM, HTN, HLD, psoriatic arthritis, thyroid nodule, depression, urinary incontinence - Admit to general medicine - Try to wean off oxygen - IV methylprednisolone 40 mg every 8 hours - IV azithromycin - TRC nebulization with albuterol and ipratropium scheduled and when necessary - Mucinex scheduled twice a day - Continue rest of the home medications - Inform teacher private about patient being here - Adequate pain control - DVT prophylaxis
[2017-07-24] MEDS ORDERED: PROAIR HFA8.5 GM INH (23:24)
--- NOTE | 2017-07-25 01:01 | Admission Certification ---
Admission Certification Certification Statement - As attending physician, I certify that at the time of - admission, based on clinical presentation, severity of - symptoms, need for further diagnostic testing and - therapeutic interventions, and risk of adverse outcomes - without in-hospital treatment, in my clinical assessment, - this patient requires an acute hospital stay for a minimum - of two nights or longer. I have also considered psychsocial - factors such as support system, advanced age, financial - issues, cognitive issues, and failed out-patient treatments, - past re-admission history, safety of patient, and lack of - compliance as applicable. Specific rationale supporting this admission is: COPD exacerbation
[2017-07-25 01:18] VITALS: BP 120/72
[2017-07-25 07:14] VITALS: BP 130/56
--- NOTE | 2017-07-25 11:41 | PN- Housestaff ---
See Addendum Subjective Follow-up For: COPD exacerbation Subjective: No overnight events. Patient remained afebrile overnight. Seen and examined this morning. Patient denied any chest pain, short of breath, nausea, vomiting or chills, fever, abdominal pain dysuria. Patient is on 3 L of oxygen maintaining saturation 94%. We will ambulate the patient and check sat and try to wean off the oxygen. Review of Systems Constitutional: Reports: no symptoms. EENTM: Reports: no symptoms. Cardiovascular: Reports: no symptoms. Respiratory: Reports: see HPI. Gastrointestinal: Reports: no symptoms. Genitourinary: Reports: no symptoms. Musculoskeletal: Reports: no symptoms. Neurological/Psychological: Reports: no symptoms. Objective Last 24 Hrs of Vital Signs/I&O Vital Signs Date Time Temp Pulse Resp B/P B/P Pulse O2 O2 Flow FiO2 Mean Ox Delivery Rate 07/25 1133 94 Nasal 3.0L Cannula 07/25 1022 Nasal 3.0L Cannula 07/25 0800 Nasal 3.0L Cannula 07/25 0714 97.8 95 20 130/56 92 07/25 0118 98.1 91 20 120/72 94 07/25 0115 96 Nasal 3.0L Cannula 07/25 0046 97.6 91 22 130/55 94 Nasal 4.0L Cannula 07/24 2350 Nasal 2.0L Cannula 07/24 2100 96 Nasal 3.0L Cannula 07/24 2016 96.5 74 18 141/69 92 Nasal 3.0L Cannula 07/24 1729 97.0 83 18 118/53 92 Room Air Intake & Output 07/25 1600 07/25 0800 07/25 0000 Intake Total 480 250 Output Total Balance 480 250 Intake, IV 250 Intake, Oral 480 Patient 239 lb 237 lb Weight Weight Reported by Patient Measurement Method Physical Exam General Appearance: Alert, Oriented X3, Cooperative, No Acute Distress Skin Temp/Moisture Exam: Warm/Dry Sepsis Skin Exam (color): Normal for Ethnicity HEENT: Atraumatic, PERRLA, EOMI Neck: Supple Cardiovascular: Normal S1, Normal S2 Lungs: Clear to Auscultation Abdomen: Soft, No Tenderness Neurological: Normal Speech, Strength at 5/5 X4 Ext, Normal Tone, Sensation Intact Extremities: No Edema Last 24 Hrs of Lab/Camilo Results Last 24 Hrs of Labs/Mics: Laboratory Tests 07/24/172246: Lactic Acid Cancelled 07/24/172031: Anion Gap 12, Estimated GFR > 60, BUN/Creatinine Ratio 31.7 H, Glucose 171 H, Lactic Acid 1.0, Calcium 9.5, Total Bilirubin 0.9, AST 21, ALT 36, Alkaline Phosphatase 77, Troponin I < 0.01, Total Protein 6.9, Albumin 4.0, Globulin 2.9, Albumin/Globulin Ratio 1.4, TSH 1.940, Free T4 1.47, CBC w Diff NO MAN DIFF REQ, RBC 4.64, MCV 101.9 H, MCH 33.0 H, RDW 15.5 H, MPV 7.9, Gran % 48.9, Lymphocytes % 38.4, Monocytes % 9.9 H, Eosinophils % 2.4, Basophils % 0.4, Absolute Granulocytes 5.3, Absolute Lymphocytes 4.1 H, Absolute Monocytes 1.1 H, Absolute Eosinophils 0.3, Absolute Basophils 0, PUBS MCHC 32.4 L Microbiology 07/24 2343 NASOPHARYN: Influenza Virus A & B Rapid Smear - COMP 07/24 2049 BLOOD: Blood Culture - RECD 07/24 2031 BLOOD: Blood Culture - RECD 07/24 1946 LOWER RESP: Respiratory Culture - COLB 07/24 1946 LOWER RESP: Gram Stain - COLB Assessment/Plan Assessment: 82 YO F with PMH of COPD not on home oxygen, diabetes type 2 with neuropathy psoriatic arthritis on methotrexate, hyperlipidemia, depression and multinodular goiter presented to ER with complaint of productive cough with light greenish phlegm and difficulty breathing for last 2 weeks. We will admit the patient for treatment of COPD exacerbation. Acute COPD exacerbation; -Patient is using 3 L of supplemental oxygen to maintain saturation above 90%. We will try to wean off the oxygen and check the ambulatory sat. -We will continue IV Solu-Medrol every 8 hourly -TRC nebulization as needed -We will continue IV azithromycin -We'll follow the pulmonology recommendations -We'll follow the CBCs -We'll follow the sputum culture if any Right upper lobe 3 mm nodule and left axillary lymph node-STABLE: -Outpatient pulmonary surveillance with repeat imaging -If symptoms of weight loss and decreased appetite night sweats etc. or increase in size consider biopsy. Diabetes mellitus: -Accu-Cheks. -insulin sliding scale with nighttime coverage and levemir Multinodular goiter: -Consider repeat thyroid ultrasound -Repaet TSH, free T4 are normal. -Outpatient referral to Dr. Hill History of psoriatic arthritis and diabetic neuropathy: -We'll continue home medications including methotrexate and gabapentin History of hyperlipidemia; -We will continue her home medications History of hypertension: -Continue lisinopril DVT Prophylaxis: Mechanical and heparin CODE STATUS: Full code Problem List: 1. COPD exacerbation Pain Ratin Pain Location: none Pain Goal: Remain pain free Pain Plan: tylenol for mild pain Tomorrow's Labs & Rationales: cbc/bep
--- NOTE | 2017-07-25 14:31 | Cons- Pulmonary ---
General Information and HPI Consulting Request Date of Consult: 07/25/17 Requested By: Dr. Espinal Reason for Consult: AECOPD Source of Information: patient, old records Exam Limitations: no limitations, unable to give history, patient's age History of Present Illness: The patient is an 82-year-old female with past medical history of COPD, not on home oxygen, asthma, GERD, hypertension, hyperlipidemia, diabetes, diabetic neuropathy, depression and multinodular goiter. She presented to the ED on 07/24 with complaints of cough and shortness of breath for past 2 weeks. She attempted to go to the COPD clinic, noting I submitted orders for her to be seen , however the order coulg not be found. The patient was in usual state of health until 2 weeks back when she started experiencing cough. She has a baseline clear phlegm and the color of her sputum changed to light green. The patient went to her PCP 1 week back and was evaluated by DATA OPERATIONS MANAGER started on a steroid taper and Z-Kiko. She went for a follow-up appointment yesterday and had no resolution of her symptoms. She was sent to the ED for further evaluation. CXR showed no evidence of pneunomia. The patient is tearful regarding her history of incontinence. Her respiratory complaints have improved in generl since admission. Allergies/Medications Allergies: Coded Allergies: codeine (HIVES 01/26/16) Home Med List: Albuterol Sulfate (Proair Hfa) 90 MCG HFA.AER.AD 2 PUF INH Q4-6 PRN PRN COPD (Reported) Budesonide/Formoterol Fumarate (Symbicort 80-4.5 Mcg Inhaler) 80 MCG-4.5 MCG/ ACTUATION HFA.AER.AD 2 PUF INH BID COPD (Reported) Calcium Carbonate/Vitamin D3 (Calcium + Vitamin D Tablet) 1 EACH TABLET 1 TAB PO BID SUPPLEMENT (Reported) Fentanyl 75 MCG/HOUR PATCH.TD72 1 PAT TOP Q48 PAIN (Reported) Folic Acid 1 MG TABLET 1 TAB PO DAILY SUPPLEMENT (Reported) Gabapentin 300 MG CAPSULE 1 CAP PO DAILY NEUROPATHY (Reported) Gabapentin 300 MG CAPSULE 2 CAP PO QPM NEUROPATHY (Reported) Insulin Glargine,Hum.rec.anlog (Lantus Solostar) 100 UNIT/ML (3 ML) INSULN.PEN 35 UNIT SC BID DIABETES (Reported) Insulin Lispro (Humalog) (Unknown Strength) VIAL 1 UNIT SC SEE SLIDING SCALE DIABETES (Reported) Consult your sliding scale (if there is any discrepancy, please follow your pre-hospital sliding scale) blood sugar dose less than 80 initiate hypoglycemia 80-100 plus 2 units 101-150 plus 4 units 151-200 plus 6 units 201-250 plus 8 units 251-300 plus 10 units 301-350 plus 12 units 351-400 plus 14 units more than 400 plus 14 units, call Lisinopril 2.5 MG TABLET 1 TAB PO DAILY HTN (Reported) Lovastatin 40 MG TABLET 2 TAB PO QPM CHOLESTEROL (Reported) with food Methotrexate 2.5 MG TABLET 7 TAB PO QSUN PSORIATIC ARTHRITIS (Reported) Oxybutynin Chloride 5 MG TABLET 1 TAB PO BID BLADDER (Reported) Paroxetine HCl 40 MG TABLET 1.5 TAB PO DAILY DEPRESSION (Reported) Review of Systems Review of Systems All Other Systems: Reviewed and Negative Past History Travel History Traveled to [place] past 21 day No Medical History Blood Transfusion Hx: No Neurological: migraine EENT: NONE Cardiovascular: hypertension, hyperlipidemia Respiratory: asthma, COPD, PNA Gastrointestinal: GERD Hepatic: NONE Renal: NONE Musculoskeletal: chronic back pain Psychiatric: anxiety, depression Endocrine: hypothyroidism Blood Disorders: anemia Cancer(s): NONE 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 Home Who Do You Live With? child Services at Home: None Primary Language: Yi Smoking Status: Never Smoked ETOH Use: denies use Illicit Drug Use: denies illicit drug use Functional Ability ADLs Independent: dressing, eating, toileting, bathing. Ambulation: cane IADLs Independent: shopping, housework, finances, food prep, telephone, transportation , medication admin. Exam & Diagnostic Data Last 24 Hrs of Vital Signs/I&O Vital Signs Date Time Temp Pulse Resp B/P B/P Pulse O2 O2 Flow FiO2 Mean Ox Delivery Rate 07/25 1022 Nasal 3.0L Cannula 07/25 0714 97.8 95 20 130/56 92 07/25 0118 98.1 91 20 120/72 94 07/25 0115 96 Nasal 3.0L Cannula 07/25 0046 97.6 91 22 130/55 94 Nasal 4.0L Cannula 07/24 2350 Nasal 2.0L Cannula 07/24 2100 96 Nasal 3.0L Cannula 07/24 2016 96.5 74 18 141/69 92 Nasal 3.0L Cannula 07/24 1729 97.0 83 18 118/53 92 Room Air Intake & Output 07/25 1600 07/25 0800 07/25 0000 Intake Total 480 250 Output Total Balance 480 250 Intake, IV 250 Intake, Oral 480 Patient 239 lb 237 lb Weight Weight Reported by Patient Measurement Method Physical Exam General Appearance: alert, awake, anxious Head: atraumatic, normal appearance Neck: supple Respiratory: quiet respiration, decreased breath sounds, wheezing Cardiovascular: S1 and S2 heard, distant Gastrointestinal: soft, non-tender Extremities: no edema Skin: intact, warm/dry Last 48 Hrs of Labs/Camilo: Laboratory Tests 07/24/172246: Lactic Acid Cancelled 07/24/172031: Anion Gap 12, Estimated GFR > 60, BUN/Creatinine Ratio 31.7 H, Glucose 171 H, Lactic Acid 1.0, Calcium 9.5, Total Bilirubin 0.9, AST 21, ALT 36, Alkaline Phosphatase 77, Troponin I < 0.01, Total Protein 6.9, Albumin 4.0, Globulin 2.9, Albumin/Globulin Ratio 1.4, TSH 1.940, Free T4 1.47, CBC w Diff NO MAN DIFF REQ, RBC 4.64, MCV 101.9 H, MCH 33.0 H, RDW 15.5 H, MPV 7.9, Gran % 48.9, Lymphocytes % 38.4, Monocytes % 9.9 H, Eosinophils % 2.4, Basophils % 0.4, Absolute Granulocytes 5.3, Absolute Lymphocytes 4.1 H, Absolute Monocytes 1.1 H, Absolute Eosinophils 0.3, Absolute Basophils 0, PUBS MCHC 32.4 L Microbiology 07/24 2343 NASOPHARYN: Influenza Virus A & B Rapid Smear - COMP Diagnostic Data Other Results No demonstrable lymphadenopathy. Right middle lobe and left lower lobe atelectasis. Stable right upper lobe 3 mm nodule. Stable left axillary lymph node. Assessment/Plan Impression/Plan: 1. AECOPD. 2. History of asthma. 3. HTN. 4. HLD. 5. DM with diabetic neuropathy. 6. Depression. 7. No demonstrable lymphadenopathy on CT scanning. 8. Right middle lobe and left lower lobe atelectasis. 9. Stable right upper lobe 3 mm nodule. 10.Stable left axillary lymph node. 11.Urinary incontinence - followed by Dr. Goldstein. Recommendations: * Continue nebs/trc. * IST. * Out of bed to chair. * Oxygen for saturations > 92%. * Continue inhaler therapy. * Continue IV steroids. * Complete 5 days of azithro therapy. * DVT prophylaxis at all times. * Continue all supportive care. * Will continue to follow. * Thank you. Consult Acknowledgment - Thank you for your consult request.
[2017-07-25 22:30] VITALS: BP 140/72
[2017-07-26 06:54] VITALS: BP 132/64
--- NOTE | 2017-07-26 07:30 | PN- Pulmonary ---
Subjective HPI/Critical Care Issues: No overnight events. Feeling better overall. Dyspnea and wheezing improved since admission. Objective Current Medications: Current Medications Sig/Chirag Start time Last Medication Dose Route Stop Time Status Admin Acetaminophen 650 MG Q8P PRN 07/24 2300 AC PO Albuterol Sulfate 3 ML BID 07/25 2200 AC 07/25 INH 1906 Albuterol Sulfate 3 ML Q4H PRN 07/24 2300 AC INH Atorvastatin Calcium 80 MG QPM 07/25 2200 AC 07/25 PO 2119 Azithromycin 500 MG DAILY 07/25 1000 AC 07/25 Dextrose/Water 250 ML IV 0936 Enoxaparin Sodium 40 MG DAILY 07/25 1000 AC 07/25 SC 0937 Fentanyl Citrate 75 MCG Q72 07/25 1000 AC 07/25 TOP 0933 Gabapentin 600 MG QPM 07/25 2200 AC 07/25 PO 2119 Gabapentin 300 MG DAILY 07/25 1000 AC 07/25 PO 0935 Guaifenesin 600 MG Q12 07/25 1000 AC 07/25 PO 2119 Insulin Aspart 0 TIDAC 07/25 0800 AC 07/25 SC 1748 Insulin Detemir 35 UNITS BID 07/25 1000 AC 07/25 SC 2133 Ipratropium Ne[place] 2.5 ML BID 07/250 AC 07/25 INH 1906 Ipratropium Neon 2.5 ML Q4 HRS NEEDED PRN 07/24 2300 AC INH Lisinopril 2.5 MG DAILY 07/25 1000 AC 07/25 PO 0936 Methylprednisolone 40 MG Q8 07/25 0600 AC 07/26 IV 0622 Oxybutynin Chloride 5 MG BID 07/25 1000 AC 07/25 PO 2119 Paroxetine HCl 60 MG DAILY 07/25 1000 AC 07/25 PO 0935 Vital Signs & I&O Last 24 Hrs of Vitals and I&O: Vital Signs Date Time Temp Pulse Resp B/P B/P Pulse O2 O2 Flow FiO2 Mean Ox Delivery Rate 07/26 0654 98.0 78 18 132/64 91 07/26 0000 94 Nasal 3.0L Cannula 07/25 2230 97.6 83 18 140/72 94 Nasal 3.0L Cannula 07/25 1906 96 Nasal 3.0L Cannula 07/25 1133 94 Nasal 3.0L Cannula 07/25 1022 Nasal 3.0L Cannula 07/25 0800 Nasal 3.0L Cannula Intake & Output 07/26 0800 07/26 0000 07/25 1600 Intake Total 240 650 Output Total Balance 240 650 Intake, Oral 240 650 Number 0 2 Bowel Movements Physical Exam General Appearance: alert, awake, anxious Head: atraumatic, normal appearance Neck: supple Respiratory: quiet respiration, decreased breath sounds, wheezing Cardiovascular: S1 and S2 heard, distant Gastrointestinal: soft, non-tender Extremities: no edema Skin: intact, warm/dry Results Last 24 Hrs of Lab Results: Laboratory Tests 07/26/17 0704: CBC w Diff Pending, WBC Pending, RBC Pending, Hgb Pending, Hct Pending, MCV Pending, MCH Pending, MCHC Pending, RDW Pending, Plt Count Pending, MPV Pending Impression/Plan Impression/Plan Impression/Plan: 1. AECOPD. 2. History of asthma. 3. HTN. 4. HLD. 5. DM with diabetic neuropathy. 6. Depression. 7. No demonstrable lymphadenopathy on CT scanning. 8. Right middle lobe and left lower lobe atelectasis. 9. Stable right upper lobe 3 mm nodule. 10.Stable left axillary lymph node. 11.Urinary incontinence - followed by Dr. Goldstein. Recommendations: * Continue nebs/trc. * IST. * Out of bed to chair. * Oxygen for saturations > 92%. * Continue inhaler therapy. * Continue IV steroids. * Complete 5 days of azithro therapy. * DVT prophylaxis at all times. * Continue all supportive care. * Will continue to follow. * Thank you.
--- NOTE | 2017-07-26 07:31 | PN- Housestaff ---
TyreseNiota 07/26/17 0731: Subjective Follow-up For: COPD exacerbation Subjective: No overnight events. Patient remained afebrile overnight. Pacing examined this morning. She is using 3 units of oxygen maintaining saturation 91%. Yesterday she was on room air while at rest and her saturation was 88%. We will try to the oxygen today and move around and check her sats. Patient denied any chest pain, palpitation, nausea, vomiting, chills, fever, abdominal pain dysuria. Patient wants to go home today. Review of Systems Constitutional: Reports: no symptoms. EENTM: Reports: no symptoms. Cardiovascular: Reports: no symptoms. Respiratory: Reports: see HPI. Gastrointestinal: Reports: no symptoms. Genitourinary: Reports: no symptoms. Neurological/Psychological: Reports: no symptoms. Objective Last 24 Hrs of Vital Signs/I&O Vital Signs Date Time Temp Pulse Resp B/P B/P Pulse O2 O2 Flow FiO2 Mean Ox Delivery Rate 07/26 0840 94 Nasal 2.0L Cannula 07/26 0654 98.0 78 18 132/64 91 07/26 0000 94 Nasal 3.0L Cannula 07/25 2230 97.6 83 18 140/72 94 Nasal 3.0L Cannula 07/25 1906 96 Nasal 3.0L Cannula 07/25 1133 94 Nasal 3.0L Cannula 07/25 1022 Nasal 3.0L Cannula Intake & Output 07/26 1600 07/26 0800 07/26 0000 Intake Total 60 240 Output Total Balance 60 240 Intake, Oral 60 240 Number 0 Bowel Movements Physical Exam General Appearance: Alert, Oriented X3, Cooperative, No Acute Distress Skin Temp/Moisture Exam: Warm/Dry Sepsis Skin Exam (color): Normal for Ethnicity HEENT: Atraumatic, PERRLA, EOMI Neck: Supple Cardiovascular: Normal S1, Normal S2 Lungs: Clear to Auscultation Abdomen: Soft, No Tenderness Neurological: Normal Speech, Strength at 5/5 X4 Ext, Normal Tone, Sensation Intact Extremities: No Edema Assessment/Plan Assessment: 82 YO F with PMH of COPD not on home oxygen, diabetes type 2 with neuropathy psoriatic arthritis on methotrexate, hyperlipidemia, depression and multinodular goiter presented to ER with complaint of productive cough with light greenish phlegm and difficulty breathing for last 2 weeks. We will admit the patient for treatment of COPD exacerbation. Acute COPD exacerbation; -Patient is using 3 L of supplemental oxygen to maintain saturation above 90%. We will try to wean off the oxygen and check the ambulatory sat. -We will continue IV Solu-Medrol 40mg every 8 hourly 2nd day. -TRC nebulization as needed -We will continue IV azithromycin 2nd day. -We'll follow the sputum culture if any. -We'll follow the pulmonology recommendations. Right upper lobe 3 mm nodule and left axillary lymph node-STABLE: -Outpatient pulmonary surveillance with repeat imaging -If symptoms of weight loss and decreased appetite night sweats etc. or increase in size consider biopsy. Diabetes mellitus: -Accu-Cheks. -Insulin NovoLog according to sliding scale -Insulin level Levemir 35 units twice a day. Multinodular goiter: -Consider repeat thyroid ultrasound -Repaet TSH, free T4 are normal. -Outpatient referral to Dr. Hill History of psoriatic arthritis and diabetic neuropathy: -We'll continue home medications including gabapentin. History of hyperlipidemia; -We will continue her home medications History of hypertension: -Continue lisinopril DVT Prophylaxis: Mechanical and heparin CODE STATUS: Full code Problem List: 1. COPD exacerbation Pain Ratin Pain Location: none Pain Goal: Remain pain free Pain Plan: tylenol for mild pain Tomorrow's Labs & Rationales: none Yvette Espinal MD 07/26/17 1227: Attending MD Review Statement Attending Statement Attending MD Statement: examined this patient, discuss w/resident/PA/SPECIAL EDUCATION TUTOR, agreed w/resident/PA/SPECIAL EDUCATION TUTOR, reviewed EMR data (avail) Attending Assessment/Plan: Agree with resident assessment and plan. Will continue Solumedrol taper, Azithromycin, nebulizer treatments, titrate down oxygen as tolerated, DVT PPx. Today still desaturating with ambulation, will attempt again tomorrow, can be discharged when clinically improved with or without oxygen.
[2017-07-26 08:28] LABS: ABSOLUTE EOSINOPHIL COUNT 0 /CUMM (0.0-0.7); EOSINOPHIL % 0 % (0-5); RED BLOOD CELL CT 4.05 /CUMM (4.20-5.40)
[2017-07-26 08:42] LABS: ABSOLUTE BASOPHIL COUNT 0 /CUMM (0.0-0.2); ABSOLUTE GRANULOCYTE CT 10.8 /CUMM (1.4-6.5); ABSOLUTE LYMPH COUNT 1.3 /CUMM (1.2-3.4); ABSOLUTE MONOCYTE COUNT 0.8 /CUMM (0.10-0.60); BASOPHIL % 0.2 % (0.0-2.0); MEAN CORPUSCULAR HGB 33.3 PG (27.0-31.0); MEAN CORPUSCULAR HGB CONC 32.9 G/DL (33.0-37.0); MEAN CORPUSCULAR VOLUME 101.1 FL (81.0-99.0); PLATELET COUNT 222 /CUMM (130-400); RBC DISTRIBUTION WIDTH 15.5 % (11.5-14.5)
[2017-07-26 08:48] LABS: GRANULOCYTE % 83.6 % (42.2-75.2)
[2017-07-26 13:55] VITALS: BP 136/78
--- NOTE | 2017-07-26 14:15 | Patient Discharge Instructions ---
Discharge Instructions General Discharge Information You were seen/treated for: COPD exacerbation Watch for these problems: Shortness of breath, chest pain, cough with sputum, wheezing, chest congestion and fever. If you experience any of the symptoms please come to ED or call to your primary care physician. Special Instructions: Follow-up with your primary care physician in one week. Also discussed about left axillary lymph node enlargement. Follow-up with your recreational vehicle resort manager in 1 week. Discussed about the pulmonary nodule which are recreational vehicle resort manager follow-up in future. Diet Recommended Diet: Diabetic Activity Activity Self Limited: Yes Acute Coronary Syndrome Inclusion Criteria At DC or during hospital stay patient has or had the following: ACS DIAGNOSIS No Discharge Core Measures Meds if any: Prescribed or Continued at Discharge Meds if any: NOT Prescribed or Continued at Discharge Congestive Heart Failure Inclusion Criteria At DC or during hospital stay patient has or had the following: CHF DIAGNOSIS No Discharge Core Measures Meds if any: Prescribed or Continued at Discharge Meds if any: NOT Prescribed or Continued at Discharge Cerebrovascular accident Inclusion Criteria At DC or during hospital stay patient has or had the following: CVA/TIA Diagnosis No Discharge Core Measures Meds if any: Prescribed or Continued at Discharge Meds if any: NOT Prescribed or Continued at Discharge Venous thromboembolism Inclusion Criteria VTE Diagnosis No VTE Type NONE VTE Confirmed by (Test) NONE Discharge Core Measures - Per Current guidelines, there needs to be overlap - treatment for the first 5 days of Warfarin therapy. - If discharged on Warfarin prior to 5 days of - overlap therapy, the patient will need to be - assessed for post discharge needs including - *Post discharge parental anticoagulation - *Warfarin and/or parental anticoagulation education - *Follow up date to check INR post discharge At least 5 days overlap therapy as Inpatient No Meds if any: Prescribed or Continued at Discharge Note: Overlap Therapy is Warfarin and Anticoagulant Meds if any: NOT Prescribed or Continued at Discharge
[2017-07-26 23:09] VITALS: BP 124/68
[2017-07-27 06:57] VITALS: BP 132/74
--- NOTE | 2017-07-27 07:50 | PN- Housestaff ---
See Addendum Subjective Follow-up For: COPD exacerbation Subjective: Patient reports intermittent cough without sputum production Review of Systems Constitutional: Reports: see HPI. Objective Last 24 Hrs of Vital Signs/I&O Vital Signs Date Time Temp Pulse Resp B/P B/P Pulse O2 O2 Flow FiO2 Mean Ox Delivery Rate 07/27 0657 98.1 72 20 132/74 94 07/27 0000 Room Air 07/26 2309 98.3 75 20 124/68 92 Room Air 07/26 1840 93 Room Air 07/26 1600 93 Room Air 07/26 1355 97.5 88 20 136/78 92 Nasal 3.0L Cannula 07/26 0902 132/64 Intake & Output 07/27 1600 07/27 0800 07/27 0000 Intake Total 500 270 Output Total Balance 500 270 Intake, IV 20 30 Intake, Oral 480 240 Number 0 0 Bowel Movements Physical Exam General Appearance: Alert, Oriented X3, Cooperative, No Acute Distress HEENT: Atraumatic, PERRLA, EOMI Neck: Supple, No JVD, No thryomegaly Cardiovascular: Regular Rate, Normal S1, Normal S2 Lungs: RLL and midlobe wheezing Abdomen: Normal Bowel Sounds, Soft, No Tenderness Extremities: No Edema Current Medications: Current Medications Sig/Chirag Start time Last Medication Dose Route Stop Time Status Admin Acetaminophen 650 MG Q8P PRN 07/24 2300 AC PO Albuterol Sulfate 3 ML BID 07/25 2200 AC 07/26 INH 1840 Albuterol Sulfate 3 ML Q4H PRN 07/24 2300 AC INH Atorvastatin Calcium 80 MG QPM 07/25 220 AC 07/26 PO 2157 Azithromycin 500 MG DAILY 07/25 1000 AC 07/26 Dextrose/Water 250 ML IV 1105 Enoxaparin Sodium 40 MG DAILY 07/25 1000 AC 07/26 SC 0903 Fentanyl Citrate 75 MCG Q72 07/25 1000 AC 07/25 TOP 0933 Gabapentin 600 MG QPM 07/25 220 AC 07/26 PO 215 Gabapentin 300 MG DAILY 07/25 1000 AC 07/26 PO 0902 Guaifenesin 600 MG Q12 07/25 1000 AC 07/26 PO 2157 Insulin Aspart 0 TIDAC 07/25 0800 AC 07/26 SC 1715 Insulin Detemir 35 UNITS BID 07/25 1000 AC 07/26 SC 215 Ipratropium [place] 2.5 ML BID 07/25 2200 AC 07/26 INH 1841 Ipratropium [place] 2.5 ML Q4 HRS NEEDED PRN 07/24 2300 AC INH Lisinopril 2.5 MG DAILY 07/25 1000 AC 07/26 PO 0902 Methylprednisolone 40 MG Q8 07/25 0600 AC 07/27 IV 0620 Oxybutynin Chloride 5 MG BID 07/25 1000 AC 07/26 PO 2157 Paroxetine HCl 60 MG DAILY 07/25 1000 AC 07/26 PO 0901 Last 24 Hrs of Lab/Camilo Results Last 24 Hrs of Labs/Mics: Laboratory Tests 07/27/17 0730: Sodium Pending, Potassium Pending, Chloride Pending, Carbon Dioxide Pending, Anion Gap Pending, BUN Pending, Creatinine Pending, BUN/Creatinine Ratio Pending , CBC w Diff Pending, WBC Pending, RBC Pending, Hgb Pending, Hct Pending, MCV Pending, MCH Pending, MCHC Pending, RDW Pending, Plt Count Pending, MPV Pending Assessment/Plan Assessment: 82 YO F with PMH of COPD not on home oxygen, diabetes type 2 with neuropathy psoriatic arthritis on methotrexate, hyperlipidemia, depression and multinodular goiter presented to ER with complaint of productive cough with light greenish phlegm and difficulty breathing for last 2 weeks. Acute COPD exacerbation; -Patient is using 3 L of supplemental oxygen to maintain saturation above 90%. We will try to wean off the oxygen and check the ambulatory sat. -We will continue IV Solu-Medrol 40mg every 8 hourly and transition to Prednisone taper upon dc. -TRC nebulization as needed -We will continue IV azithromycin upon dc, patient day 3/. -We'll follow the sputum culture if any. -We'll follow the pulmonology recommendations. Right upper lobe 3 mm nodule and left axillary lymph node-STABLE: -Outpatient pulmonary surveillance with repeat imaging -If symptoms of weight loss and decreased appetite night sweats etc. or increase in size consider biopsy. Diabetes mellitus: -Accu-Cheks. -Insulin NovoLog according to sliding scale -Insulin level Levemir 35 units twice a day. Multinodular goiter: -Consider repeat thyroid ultrasound -Repaet TSH, free T4 are normal. -Outpatient referral to Dr. Hill History of psoriatic arthritis and diabetic neuropathy: -We'll continue home medications including gabapentin. History of hyperlipidemia; -We will continue her home medications History of hypertension: -Continue lisinopril DVT Prophylaxis: Mechanical and heparin CODE STATUS: Full code Problem List: 1. COPD exacerbation Pain Ratin Pain Location: NA Pain Goal: Remain pain free Pain Plan: NA Tomorrow's Labs & Rationales: CBC, BEP Discharge Plan Discharge Disposition: DC to home today
[2017-07-27 08:46] LABS: ABSOLUTE BASOPHIL COUNT 0 /CUMM (0.0-0.2); ABSOLUTE EOSINOPHIL COUNT 0 /CUMM (0.0-0.7); ABSOLUTE LYMPH COUNT 1.4 /CUMM (1.2-3.4); ABSOLUTE MONOCYTE COUNT 0.8 /CUMM (0.10-0.60); BASOPHIL % 0 % (0.0-2.0); EOSINOPHIL % 0 % (0-5); GRANULOCYTE % 80.5 % (42.2-75.2); HEMATOCRIT 42.8 % (37-47); MEAN CORPUSCULAR HGB 33.5 PG (27.0-31.0); MEAN CORPUSCULAR HGB CONC 33.2 G/DL (33.0-37.0); MEAN CORPUSCULAR VOLUME 100.7 FL (81.0-99.0); MEAN PLATELET VOLUME 8.4 FL (7.4-10.4); PLATELET COUNT 280 /CUMM (130-400); RBC DISTRIBUTION WIDTH 15.5 % (11.5-14.5); RED BLOOD CELL CT 4.25 /CUMM (4.20-5.40); WHITE BLOOD CELL COUNT 11.1 /CUMM (4.8-10.8)
--- NOTE | 2017-07-27 09:43 | PN- Pulmonary ---
Subjective HPI/Critical Care Issues: The patient is awake and alert. She reports feeling markedly improved. She is no longer short of breath or wheezing. Her cough has resolved. She offers no new complaints today. Objective Current Medications: Current Medications Sig/Chirag Start time Last Medication Dose Route Stop Time Status Admin Acetaminophen 650 MG Q8P PRN 07/24 2300 AC PO Albuterol Sulfate 3 ML BID 07/25 2200 AC 07/26 INH 1840 Albuterol Sulfate 3 ML Q4H PRN 07/24 2300 AC INH Atorvastatin Calcium 80 MG QPM 07/25 2200 AC 07/26 PO 2157 Azithromycin 500 MG DAILY 07/25 1000 AC 07/27 Dextrose/Water 250 ML IV 0915 Enoxaparin Sodium 40 MG DAILY 07/25 1000 AC 07/27 SC 0914 Fentanyl Citrate 75 MCG Q72 07/25 1000 AC 07/25 TOP 0933 Gabapentin 600 MG QPM 07/25 2200 AC 07/26 PO 2157 Gabapentin 300 MG DAILY 07/25 1000 AC 07/27 PO 0915 Guaifenesin 600 MG Q12 07/25 1000 AC 07/27 PO 0914 Insulin Aspart 0 TIDAC 07/25 0800 AC 07/27 SC 0914 Insulin Detemir 35 UNITS BID 07/25 1000 AC 07/27 SC 0914 Ipratropium [place] 2.5 ML BID 07/25 2200 AC 07/26 INH 1841 Ipratropium [place] 2.5 ML Q4 HRS NEEDED PRN 07/24 230 AC INH Lisinopril 2.5 MG DAILY 07/25 1000 AC 07/27 PO 0915 Methylprednisolone 40 MG Q8 07/25 0600 AC 07/27 IV 0620 Oxybutynin Chloride 5 MG BID 07/25 1000 AC 07/27 PO 0919 Paroxetine HCl 60 MG DAILY 07/25 1000 AC 07/27 PO 0914 Vital Signs & I&O Last 24 Hrs of Vitals and I&O: Vital Signs Date Time Temp Pulse Resp B/P B/P Pulse O2 O2 Flow FiO2 Mean Ox Delivery Rate 07/27 0657 98.1 72 20 132/74 94 07/27 0000 Room Air 07/26 2309 98.3 75 20 124/68 92 Room Air 07/26 1840 93 Room Air 07/26 1600 93 Room Air 07/26 1355 97.5 88 20 136/78 92 Nasal 3.0L Cannula Intake & Output 07/27 1600 07/27 0800 07/27 0000 Intake Total 500 270 Output Total Balance 500 270 Intake, IV 20 30 Intake, Oral 480 240 Number 0 0 Bowel Movements Physical Exam General Appearance: alert, awake, anxious Head: atraumatic, normal appearance Neck: supple Respiratory: quiet respiration, decreased breath sounds, wheezing resolved Cardiovascular: S1 and S2 heard, distant Gastrointestinal: soft, non-tender Extremities: no edema Skin: intact, warm/dry Results Last 24 Hrs of Lab Results: Laboratory Tests 07/27/17 0730: Anion Gap 9, Estimated GFR > 60, BUN/Creatinine Ratio 42.0 H, CBC w Diff NO MAN DIFF REQ, RBC 4.25, MCV 100.7 H, MCH 33.5 H, MCHC 33.2, RDW 15.5 H, MPV 8.4, Gran % 80.5 H, Lymphocytes % 12.5 L, Monocytes % 7.0, Eosinophils % 0, Basophils % 0, Absolute Granulocytes 9.0 H, Absolute Lymphocytes 1.4, Absolute Monocytes 0.8 H, Absolute Eosinophils 0, Absolute Basophils 0 Last 24 Hrs of Micro Results: Negative to date. Impression/Plan Impression/Plan Impression/Plan: 1. AECOPD. 2. History of asthma. 3. HTN. 4. HLD. 5. DM with diabetic neuropathy. 6. Depression. 7. No demonstrable lymphadenopathy on CT scanning. 8. Right middle lobe and left lower lobe atelectasis. 9. Stable right upper lobe 3 mm nodule. 10.Stable left axillary lymph node. 11.Urinary incontinence - followed by Dr. Goldstein. Recommendations: * Continue nebs/trc. * IST. * Out of bed to chair. * Oxygen for saturations > 92%. * Continue inhaler therapy. * Complete oral prednisone taper. * Complete 5 days of azithro therapy. * DVT prophylaxis at all times. * Continue all supportive care. * Discharge planning.
[2017-07-27] MEDS ORDERED: PREDNISONE10 M2 PO ×2 (10:42→10:55)
[2017-07-27] MEDS ORDERED: AZITHROMYCIN500 M3 PO ×2 (10:45→10:55)
[2017-07-28] MEDS ORDERED: PREDNISONE10 M2 PO (11:06)
== END 2017-07-27 16:00 | DRG 191 ==
LOC: ERH 16:58 → 2NB 22:23 → ERHI 22:23 → ENRESERV 22:34 → CANRESERV 22:34 → ENRESERV 07-25 00:10 → 2NB 07-25 01:07 → ENPENDDIS 07-27 11:47 → ENTRNSPT 07-27 15:53 → 2NB 07-27 16:00 → CMPTRNSPT 07-27 16:19
PROVIDERS: Physician Assistant; Student in an Organized Health Care Education/Training Program
DX: J44.1 Chronic obstructive pulmonary disease with (acute) exacerbation (principal); J98.11 Atelectasis; E11.40 Type 2 diabetes mellitus with diabetic neuropathy, unspecified; E66.9 Obesity, unspecified; Z68.35 Body mass index [BMI] 35.0-35.9, adult; Z79.4 Long term (current) use of insulin; E04.2 Nontoxic multinodular goiter; L40.50 Arthropathic psoriasis, unspecified; I10 Essential (primary) hypertension; Z77.22 Contact with and (suspected) exposure to environmental tobacco smoke (acute) (chronic); K21.9 Gastro-esophageal reflux disease without esophagitis; E78.5 Hyperlipidemia, unspecified; R32 Unspecified urinary incontinence; F32.9 Major depressive disorder, single episode, unspecified; R91.1 Solitary pulmonary nodule; R59.0 Localized enlarged lymph nodes; G47.33 Obstructive sleep apnea (adult) (pediatric)
CPT/HCPCS: 2NBSP; ERO; 36415; 71046; 82436; 87040; 87070; 87804; 87804-59; 93005; 93010; 96374; 96375; J0456; J1650; J2920; J2930; J7060

== ENCOUNTER → 2018-01-11 | Day surgery (SDC) | payer OTHER, MEDICARE ==
[~2018-01-11] VITALS: Ht 175.3 cm; Wt 103.0 kg
[~2018-01-11] MED LIST changes: +AZITHROMYCIN500 M3 PO; +PROAIR HFA8.5 GM INH
--- NOTE | 2018-01-11 10:41 | Operative Report ---
Operative/Inv Procedure Report Surgery Date: 01/11/18 Name of Procedure: Urethral sling and cystoscopy Pre-Operative Diagnosis: Stress urinary incontinence Post-Operative Diagnosis: Same Estimated Blood Loss: 50ml to 100ml Surgeon/Footwear Production Machine Operator: Ashlee Goldstein MD Anesthesia: local monitored anesthesi Implants: Vaginal mesh Complications: None Condition: Stable Operative Indication: Stress urinary incontinence Operative/Procedure Note Note: This is an 82-year-old female with the history of urinary incontinence for several years. She has had the bulk of the urge urinary incontinence addressed without having the stress urinary incontinence component addressed. She demonstrated charlie stress urinary incontinence in the office and give was given the option of a urethral sling to address this portion of the incontinence that she experiences on a daily basis. She was given the risks, benefits, and alternatives of the surgery and she wished to proceed. This was given to her in the office as well as the holding area prior to consent signing in the holding area. This was done in the presence of her daughter as well. She was taken to the operating room placed on the operating table in the supine position. Timeout was performed. IV antibiotics were infused. IV sedation was started. She was placed in the dorsal lithotomy position. She was prepped and draped in the standard sterile fashion after her genitalia was shaved with a clipper.Singleton catheter was placed in the bladder was emptied. The Singleton was clamped and placed on the patient's abdomen. Since retractor was placed. The labia majora was sutured to the sterile drapes to help with visualization. 1% lidocaine both was infiltrated into the anterior vaginal wall beneath the urethra. Care was taken as an incision was made approximately 3 inches in length under the urethra. Vaginal flaps are created taking care not to injure the urethra. This was done to the retropubic space with the Metzenbaum scissors. The Altis Sling kit was then opened to place the mini sling. The trochars provided were used to place the sling in a flat orientation beneath the urethra. It was seen to be sitting nicely and was tightened with a DeBakey between the urethra and the sling. 3-0 Vicryl sutures were sutured to keep the mesh in place as her anatomy appeared to promote sliding of the sling. There was no mesh in the vaginal fornices appreciated. The area was copiously irrigated with bacitracin irrigation. Tightening suture was cut. The incision was closed using 3-0 Vicryl locking every third suture. The Singleton catheter was removed and a cystoscopy was performed. The bladder was globally inspected and there was no abnormalities and the ureters were in the normal anatomic location. There is no mesh in the bladder the urethra or the vaginal fornices. The bladder was emptied. 2 inch vaginal packing impregnated with bacitracin ointment was placed into the vaginal vault. Sponge and needle count were correct at the end of the case. Findings: No mesh in the bladder, urethra, or vaginal fornices.
== END ==
LOC: STS 03:31
DX: N39.3 Stress incontinence (female) (male) (principal); E11.40 Type 2 diabetes mellitus with diabetic neuropathy, unspecified; Z79.4 Long term (current) use of insulin; I10 Essential (primary) hypertension; J44.9 Chronic obstructive pulmonary disease, unspecified; K21.9 Gastro-esophageal reflux disease without esophagitis; L40.50 Arthropathic psoriasis, unspecified
CPT/HCPCS: C1771; J0131; J0690; J2250